=== PATIENT | male | born 1965 | race Caucasian/White ===

== ENCOUNTER → 2016-10-14 11:07 | Day surgery (SDC) | payer OTHER ==
[~2016-10-14 11:07] MED LIST: Buffered Lidocaine 1% SYRIN* 3 ML/SYR SYRINGE INTRADERM ONE; Dexamethasone IV* 4 MG/ML 1 ML (4 MG) ONE; Lidocaine 2% PF* 5 ML VIAL ONE; Metoclopramide IV* 5 MG/ML 2 ML VIAL IV PRN; Midazolam* 1 MG/ML 2 ML VIAL (2 MG) ONE; Ondansetron INJ* 2 MG/ML VIAL ONE; Propofol* 10 MG/ML 20 ML BTL IV PUSH ONE; Scopolamine 1.5 mg* PATCH TRANSDERM PRN; Succinylcholine* 20 MG/ML 10 ML VIAL ONE; fentaNYL* 50 MCG/ML 2 ML VIAL (100 MCG VIAL) ONE
[2016-10-14 16:16] VITALS: BP 106/66
--- NOTE | 2016-10-15 04:06 | PRO ---
BRONCHOSCOPY REPORT: DATE OF PROCEDURE: 10/14/16 PROCEDURE PERFORMED: Bronchoscopy with endobronchial ultrasound-guided fine- needle aspiration of right hilar mass and mediastinal nodes. PREPROCEDURAL DIAGNOSIS: Lung mass, mediastinal adenopathy, rule out malignancy. ANESTHESIA: General anesthesia. ANESTHESIOLOGIST: Alissa Temple MD DESCRIPTION OF PROCEDURE: Informed consent was obtained from the patient prior to the procedure after all the risks and benefits were thoroughly explained. The patient was intubated with size 8.0 endotracheal tube prior to the procedure. Appropriate time-out was performed and agreed on by operating room staff. The patient was placed supine on operating room table. Nikko hugger and Venodynes were placed. Flexible Olympus bronchoscope was inserted through ET tube for airway inspection. The patient noted to have thick white secretions bilaterally. Secretions were suctioned out. Sample was sent to lab for microbiological examination. No endobronchial lesions were noted. Bronchoscope was then withdrawn and EBUS bronchoscope was inserted. The right hilar mass was accessed with 6 passes. Atypical cells were seen in one of the pass. Adequate sample was ascertained by rapid on-site evaluation. Station R4 lymph node was accessed with 5 passes. Rapid on-site evaluation revealed adequate lymphatic tissue and evidence of malignant cells in 2 out of those 5 passes. Bronchoscope was then advanced and station 7 lymph node was sampled with 4 passes. Rapid on-site evaluation revealed adequate lymphatic tissue and no evidence of malignant cells. Station L4 was then accessed with 2 passes. Rapid on-site evaluation revealed lymphatic tissue on 2 passes with no atypical cells. The patient did not have significantly enlarged left-sided nodes and therefore they were not biopsied. Minimum bleeding occurred during the procedure. The patient was extubated and seen in recovery in optimal condition. Bronchoalveolar lavage was obtained from right upper lobe and was sent to the lab for microbiological examination. [id number]/[facility] #: [id number] MTDD
== END | disposition home or self-care (01) ==
LOC: OR 11:07
PROVIDERS: ATTEND Internal Medicine
DX: C34.01 Malignant neoplasm of right main bronchus (principal); C77.1 Secondary and unspecified malignant neoplasm of intrathoracic lymph nodes; J44.9 Chronic obstructive pulmonary disease, unspecified; F17.210 Nicotine dependence, cigarettes, uncomplicated; I10 Essential (primary) hypertension; G89.29 Other chronic pain; F11.20 Opioid dependence, uncomplicated; G35 Multiple sclerosis
CPT/HCPCS: 87070; 87077; 87102; 87184; 87186; 87205; 88172; 88173; 88305; 88341; 88342; J0330; J1100; J2250; J2405; J2704; J3010

== ENCOUNTER 2016-11-17 10:30 | Day surgery (SDC) | payer MEDICARE ==
[~2016-11-17 10:30] MED LIST changes: +Buffered Lidocaine 1% SYR 3ML* 3 ML/SYR SYRINGE INTRADERM ONE; -Buffered Lidocaine 1% SYRIN* 3 ML/SYR SYRINGE INTRADERM ONE; -Dexamethasone IV* 4 MG/ML 1 ML (4 MG) ONE; +Famotidine IV* 10 MG/ML 2 ML (20 mg) IV ONE; +Famotidine IV* 10 MG/ML 2 ML (20 mg) ONE; -Lidocaine 2% PF* 5 ML VIAL ONE; -Metoclopramide IV* 5 MG/ML 2 ML VIAL IV PRN; -Midazolam* 1 MG/ML 2 ML VIAL (2 MG) ONE; -Ondansetron INJ* 2 MG/ML VIAL ONE; +PROCHLORPERAZINE INJ 5 MG/ML 2 ML VIAL IV PRN; -Propofol* 10 MG/ML 20 ML BTL IV PUSH ONE; +Scopolamine 1.5 mg* PATCH ONE; +Scopolamine 1.5 mg* PATCH TRANSDERM ONE; -Scopolamine 1.5 mg* PATCH TRANSDERM PRN; -Succinylcholine* 20 MG/ML 10 ML VIAL ONE; +ceFAZolin 2 GM PREMIX(*) 2 GM/50 ML BAG IVPB ONE; -fentaNYL* 50 MCG/ML 2 ML VIAL (100 MCG VIAL) ONE
[2016-11-17] MEDS ORDERED: Albuterol 2.5 MG/3 ML NEB.SOL* (0.083%) ONE (11:22)
[2016-11-17] MEDS ORDERED: Dexamethasone IV* 4 MG/ML 1 ML (4 MG) ONE (11:22)
[2016-11-17] MEDS ORDERED: KETAMINE HCL* 50 MG/ML 10 ML VIAL ONE (12:38)
[2016-11-17] MEDS ORDERED: fentaNYL* 50 MCG/ML 2 ML VIAL (100 MCG VIAL) ONE ×2 (12:38→15:22)
[2016-11-17] MEDS ORDERED: Midazolam* 1 MG/ML 5 ML VIAL (5 MG) ONE ×2 (12:38→13:52)
[2016-11-17] MEDS ORDERED: Lidocaine 1% INJ* 10 MG/ML 30 ML SDV ONE (13:56)
[2016-11-17] MEDS ORDERED: Lidocaine 2% PF * 5 ML VIAL ONE (14:20)
[2016-11-17] MEDS ORDERED: Propofol* 10 MG/ML 20 ML BTL IV PUSH ONE ×3 (14:20→16:14)
[2016-11-17] MEDS ORDERED: Ondansetron INJ* 2 MG/ML VIAL ONE (14:20)
[2016-11-17] MEDS ORDERED: Morphine INJ* 10 MG/ML 1 ML SYRINGE ONE (14:29)
[2016-11-17] MEDS ORDERED: Midazolam* 1 MG/ML 2 ML VIAL (2 MG) ONE (15:22)
[2016-11-17] MEDS ORDERED: HYDROmorphone* 1 MG/ML 1 ML SYR ONE (16:55)
[2016-11-17] MEDS: HYDROmorphone* 1 MG/ML 1 ML SYR IV PRN ×5 (16:57→17:37)
--- NOTE | 2016-11-17 17:32 | RAD ---
Indication: Status post Mediport insertion. Single frontal view of the chest performed at 1655 hours was reviewed. Comparison is made with previous exam dated November 17, 2016. Right-sided central catheter is in place. No pneumothorax is noted. The tip is noted in the superior vena cava. No definite pleural fluid, pneumonia or pneumothorax is noted. IMPRESSION: CENTRAL CATHETER IN PLACE.
--- NOTE | 2016-11-17 17:34 | RAD ---
CPT II Codes: 6045F INDICATION: Central line placement Fluoroscopic services provided for referring physician. 57.4 seconds of fluoroscopy time was used. There is placement of a right-sided PowerPort with the tip in the superior vena cava. IMPRESSION: FLUOROSCOPIC SERVICES PROVIDED FOR REFERRING PHYSICIAN FOR CENTRAL CATHETER PLACEMENT.
[2016-11-17 17:48] VITALS: BP 101/68
--- NOTE | 2016-11-18 06:50 | OP ---
DATE OF OPERATION: 11/17/16 - [facility] DATE OF : 61 SURGEON: Mingo Dodd MD UNDERWRITING SERVICE REPRESENTATIVE: None. ANESTHESIOLOGIST: Dr. Moreno. ANESTHESIA: Local MAC. PRE-OPERATIVE DIAGNOSIS: Right lung carcinoma. POST-OPERATIVE DIAGNOSIS: Right lung carcinoma. OPERATIVE PROCEDURE: Removal of left subclavian central venous catheter with subcutaneous port and placement of a right subclavian PowerPort. ESTIMATED BLOOD LOSS: 10 mL. IV FLUIDS: Crystalloids. SPECIMENS: None. DRAINS: None. COMPLICATIONS: None. COUNTS: The instruments, needle, and sponge counts were correct. DESCRIPTION OF PROCEDURE: The patient was brought to the operating room and placed on the table supine. Sequential compression devices were placed on both lower extremities. The patient was administered intravenous sedation. The chest and neck were prepped and draped in the usual sterile fashion and time- out was performed. Local anesthetic was infiltrated into the soft tissue and skin on the left upper chest. The area of the palpable subcutaneous port and through the area of the previous scar, an incision was created, dividing the subcutaneous tissues with cautery and identifying the catheter and the port, which was elevated. The catheter was divided on the port side, the port was removed from the subcutaneous tissues with cautery. The catheter was threaded with a guidewire and then the catheter was bagged out. The guidewire was confirmed to be in the superior vena cava under fluoroscopic imaging. Attempts were made to pass a peel-away sheath and dilator ; however, there appeared to be significant fibrosis along the tract and that was not possible. It was decided to then attempt the left cephalic vein cut down. The incision was extended further towards the lateral aspect in the dissection of the deltopectoral triangle revealed a cephalic vein, which was isolated with 3-0 silks, ligated distally and then a venotomy created and the 8- American PowerPort catheter was advanced into the area of the subclavian vein; however, upon attempts to advance the catheter into the superior vena cava, the catheter preferentially went into the jugular vein and then into the contralateral subclavian vein and despite attempts to manipulate the catheter and advance it into the superior vena cava, this was not possible. Lastly, an attempt was made to place the left internal jugular catheter and under ultrasound guidance, the left internal jugular vein was cannulated; however, guidewire was not able to be passed and ultimately it was decided to abort any further attempts from the left side in favor of placement of the right-sided port. The cephalic vein was ligated with 3-0 silk. Hemostasis was assured in the wound and the wound was closed with 3-0 Polysorb for the subcutaneous tissues and 4- 0 Monocryl for the skin in the running subcuticular fashion and Steri-Strips were applied. The patient was then re-prepped and draped and time- out was re-performed for a right subclavian vein PowerPort placement. After infiltrating with local anesthetic, the vein was cannulated on second pass with the needle and the guidewire was placed in the superior vena cava without difficulty. Additional anesthetic was infiltrated to create the subcutaneous port inferior to the insertion site and the pocket was created with cautery. A counterincision was made at the guidewire insertion site and then the 8-American PowerPort catheter was back tunneled to the pocket. The peel-away sheath and dilator were advanced over the guidewire into the superior vena cava under fluoroscopic guidance, then the catheter was advanced into the superior vena cava under fluoroscopic guidance. The catheter was cut through the appropriate length, connected to the port, which was placed in the subcutaneous pocket and secured with a single 2-0 Surgipro. The port was accessed, it sarwat and flushed easily. The wounds were then closed with 3-0 Polysorb for the subcutaneous tissues, 4-0 Monocryl for the skin, and Steri-Strips applied. The port was accessed and flushed with heparinized saline. Tegaderm dressing was then placed over the site. The patient tolerated the procedure well. He was awakened and transferred to the recovery room in stable condition. CC: Dr. Mario Marie; Ilana Fierro MD; Mingo Rodriguez MD * [id number]/[facility] #: [id number] [facility] CENTERFernando
[2016-11-20] MEDS ORDERED: Scopolomine PATCH Remove* 1 NOTE MISC PATCH OFF ONE (06:00)
== END 2016-11-17 18:00 | disposition home or self-care (01) ==
LOC: OR 10:30
PROVIDERS: ATTEND Surgery
DX: C34.01 Malignant neoplasm of right main bronchus (principal); G35 Multiple sclerosis; J44.9 Chronic obstructive pulmonary disease, unspecified; F17.210 Nicotine dependence, cigarettes, uncomplicated; T82.594A Other mechanical complication of infusion catheter, initial encounter; Y83.1 Surgical operation with implant of artificial internal device as the cause of abnormal reaction of the patient, or of later complication, without mention of misadventure at the time of the procedure
CPT/HCPCS: 71010; 76000; A9270-GY; C1788; J0690; J1100; J1170; J1642; J2001; J2250; J2270; J2405; J2704; J3010

== ENCOUNTER 2018-03-08 11:41 | Inpatient (IN) | payer MEDICARE, MEDICAID ==
[2018-03-08] MEDS ORDERED: Acetaminophen TAB* 325 MG PO PRN (15:00)
[2018-03-08] MEDS ORDERED: Enoxaparin(*) 40 MG/0.4 ML SYR SUBCUT SCH (15:00)
[2018-03-08] MEDS ORDERED: ALPRAZolam TAB* 0.5 MG PO PRN (16:25)
[2018-03-08] MEDS ORDERED: Polyethylene Glycol 3350* 17 GM PACKET PO PRN (16:25)
[2018-03-08] MEDS ORDERED: Docusate CAP* 100 MG PO PRN (16:25)
[2018-03-08] MEDS: HYDROmorphone TAB* 4 MG PO PRN ×2 (17:11→21:25)
[2018-03-08] MEDS: Benzonatate CAP* 100 MG PO PRN (17:20)
[2018-03-08] MEDS: Albuterol HFA INHALER* 8 gm MDI INH SCH ×2 (18:22→20:13)
[2018-03-08] MEDS: NS 0.9% 1000 ML* 1,000 ML IV SCH (18:22)
[2018-03-08 18:25] LABS: ABS Basophils 0 10^3/ul (0-0.2); ABS Eosinophils 0.1 10^3/ul (0-0.6); ABS Lymphocytes 0.8 10^3/ul (1.0-4.8); ABS Neutrophils 4.2 10^3/ul (1.5-7.7); ABS Nucleated RBC 0 10^3/ul; Eosinophil % 1.4 % (0-6); Hematocrit 35 % (42-52); Hemoglobin 11.9 g/dl (14.0-18.0); Lymphocyte % 13.6 % (25-47); Mean Corpuscular HGB Conc 34 g/dl (31-36); Mean Corpuscular Hemoglobin 30 pg (27-31); Mean Corpuscular Volume 88 fL (80-94); Mean Platelet Volume 7.9 um3 (7.4-10.4); Nucleated Red Blood Cells % 0.2; Platelet Count 190 10^3/ul (150-450); Red Blood Count 3.97 10^6/ul (4.00-5.40); Red Cell Distribution Width 13 % (10.5-15); White Blood Count 6.1 10^3/ul (3.5-10.8)
[2018-03-08 18:44] LABS: EGFR Non-African American 82.6 (>60)
--- NOTE | 2018-03-08 19:21 | RAD ---
EXAM: CT Chest Without Intravenous Contrast CLINICAL HISTORY: 52 years old, male; Pain; Chest pain; Prior surgery; Surgery date: 1-6 months; Surgery type: Port placement; Additional info: R sided cp, h/o lung ca TECHNIQUE: Axial computed tomography images of the chest without intravenous contrast. All CT scans at this facility use at least one of these dose optimization techniques: automated exposure control; mA and/or kV adjustment per patient size (includes targeted exams where dose is matched to clinical indication); or iterative reconstruction. Coronal and sagittal reformatted images were created and reviewed. COMPARISON: CHEST WO CT CHEST W/O 12/17/2017 11:40 AM FINDINGS: Lungs: Mild centrilobular emphysematous disease. Previously seen confluent volume loss encasing the right hilum is again identified with a maximal measurement of 7.7 cm (series 3, image 25) previously 5.7 cm. There is encasement with mild narrowing of the perihilar bronchi unchanged from prior. Tree in bud configuration nodules are seen apical posterior segment right upper lobe, lateral basal segment right lower lobe, and posterior basal segment left lower loss which are new. New pulmonary nodule posterior segment right upper lobe measures 0.6 cm (series 3, image 17). Pulmonary nodules versus consolidation with mild adjacent ground glass opacification posterior basal segment right lower lobe measures 1.5 cm (series 3, image 37) and lateral basal segment right lower lobe measuring 0.8 cm (series 3, image 36). Subsegmental atelectasis inferior lingula and lateral basal segment left lower lobe which is new compared to prior study. Peribronchial thickening of the left lower lobe bronchi which is advanced for the prior study with mucous plugs again seen. Pleural space: Tiny left effusion. No right effusion. No pneumothorax. Heart: Normal. No cardiomegaly. No pericardial effusion. Bones/joints: No fractures. No suspicious bone lesions. Intrathecal lead terminates at T7. Soft tissues: Normal. No mass or hemorrhage. Vasculature: The aorta demonstrates mild atherosclerotic calcification. No thoracic aortic aneurysm. Lymph nodes: Normal. No enlarged lymph nodes. Tubes, lines and devices: Right chest infusion port terminates at the cavoatrial junction. No fluid collection or hyperemia around the port. IMPRESSION: 1. Right perihilar posttreatment fibrosis worsening compared to prior study with interval onset multifocal endobronchial pneumonia with recurrent metastatic disease considered less likely. Findings superimposed on emphysema. 2. New right upper lobe pulmonary nodule may be infectious inflammatory although attention on followup surveillance is recommended.
[2018-03-08] MEDS: Zolpidem TAB* 10 MG PO SCH (21:26)
[2018-03-08] MEDS: oxyCODONE SR TAB(*) 15 MG TAB.SR PO SCH (21:26)
[2018-03-08] MEDS ORDERED: Albuterol HFA INHALER* 8 gm MDI INH PRN (21:29)
[2018-03-08 21:53] LABS: Urine Appearance Cloudy; Urine Blood Negative (Negative); Urine Color Yellow; Urine Ketones Trace (Negative); Urine Protein Negative (Negative); Urine Specific Gravity 1.015 (1.010-1.030); Urine Urobilinogen Negative (Negative)
[2018-03-09] MEDS: HYDROmorphone TAB* 4 MG PO PRN ×3 (01:35→17:29)
[2018-03-09] MEDS: NS 0.9% 1000 ML* 1,000 ML IV SCH ×2 (02:59→11:13)
[2018-03-09] MEDS ORDERED: HYDROmorphone TAB* 4 MG PO ONE (03:23)
[2018-03-09] MEDS: guaiFENesin/CODIEN 100MG-10MG* 5 ML UDC PO PRN ×4 (03:54→23:01)
[2018-03-09 05:49] LABS: ABS Basophils 0 10^3/ul (0-0.2); ABS Eosinophils 0.1 10^3/ul (0-0.6); ABS Lymphocytes 0.7 10^3/ul (1.0-4.8); ABS Neutrophils 3.9 10^3/ul (1.5-7.7); ABS Nucleated RBC 0 10^3/ul; Eosinophil % 2.3 % (0-6); Hematocrit 35 % (42-52); Hemoglobin 11.8 g/dl (14.0-18.0); Lymphocyte % 12.9 % (25-47); Mean Corpuscular HGB Conc 33 g/dl (31-36); Mean Corpuscular Hemoglobin 30 pg (27-31); Mean Corpuscular Volume 89 fL (80-94); Nucleated Red Blood Cells % 0.1; Platelet Count 196 10^3/ul (150-450); Red Blood Count 3.99 10^6/ul (4.00-5.40); Red Cell Distribution Width 13 % (10.5-15); White Blood Count 5.8 10^3/ul (3.5-10.8)
[2018-03-09 07:10] LABS: EGFR Non-African American 102.2 (>60)
[2018-03-09] MEDS: Famotidine TAB* 20 MG PO SCH (08:07)
[2018-03-09] MEDS: oxyCODONE SR TAB(*) 15 MG TAB.SR PO SCH ×2 (08:07→22:42)
[2018-03-09] MEDS ORDERED: Citalopram TAB* 40 MG PO SCH (09:00)
[2018-03-09] MEDS ORDERED: Morphine VIAL* 4 MG/ML VIAL (1 ml vial) IV ONE (10:16)
--- NOTE | 2018-03-09 11:46 | PN ---
Progress Note - Progress Note Date of Service: 03/09/18 SOAP: Subjective: []Still SOB and right sided chest pain. Chest pain sever. SOB started one week ago. Cough, non productive. Low grade fevers, 99. No VITOR. Confusion and hallucination x 2 days. 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 PmHx: - Stage III NSSLC, XRT and carbo/taxol - MS - PE in past, 2008 - COPD - Bipolar Acetaminophen (Tylenol Tab*) 650 mg PO Q4H PRN PRN Reason: FEVER/PAIN Albuterol (Ventolin Hfa Inhaler*) 2 puff INH Q4H PRN PRN Reason: SOB/WHEEZING Alprazolam (Xanax Tab*) 0.5 mg PO Q8H PRN PRN Reason: ANXIETY Benzonatate (Tessalon Cap*) 100 mg PO BID PRN PRN Reason: COUGH Last Admin: 03/08/18 17:20 Dose: 100 mg Citalopram Hydrobromide (Celexa Tab*) 40 mg PO DAILY [facility] Last Admin: 03/09/18 08:07 Dose: 40 mg Docusate Sodium (Colace Cap*) 100 mg PO DAILY PRN PRN Reason: CONSTIPATION Enoxaparin Sodium (Lovenox(*)) 40 mg SUBCUT Q24H [facility] Last Admin: 03/08/18 17:20 Dose: 40 mg Famotidine (Pepcid Tab*) 20 mg PO DAILY [facility] Last Admin: 03/09/18 08:07 Dose: 20 mg Guaifenesin/Codeine Phosphate (Robitussin Ac 100mg-10mg*) 5 ml PO Q4H PRN PRN Reason: COUGH Last Admin: 03/09/18 08:07 Dose: 5 ml Hydromorphone HCl (Dilaudid Tab*) 4 mg PO Q4H PRN PRN Reason: PAIN Last Admin: 03/09/18 09:39 Dose: 4 mg Sodium Chloride (Ns 0.9% 1000 Ml*) 1,000 mls @ 125 mls/hr IV PER RATE [facility] Last Admin: 03/09/18 11:13 Dose: 125 mls/hr Oxycodone HCl (Oxycontin(*)) 15 mg PO BID [facility] Last Admin: 03/09/18 08:07 Dose: 15 mg Polyethylene Glycol/Electrolytes (Miralax*) 17 gm PO DAILY PRN PRN Reason: CONSTIPATION Zolpidem Tartrate (Ambien Tab*) 10 mg PO BEDTIME [facility] Last Admin: 03/08/18 21:26 Dose: 10 mg Objective: [] Vital Signs Temp Pulse Resp BP Pulse Ox 99.9 F 87 20 100/59 93 03/09/18 07:48 03/09/18 07:48 03/09/18 11:05 03/09/18 07:48 03/09/18 07:48 HEENT - no oral lesions. No LAD Has bronchial congestion, crackles, R > L, no wheezing RRR S1S2 Obese, NT ND Ext Tr edema Neuro- oriented to hospital, cohesive story, no hallucinations at this time. Assessment: []52 yo with h/o early stage NSSLC as well as chronic lung disease, history of PE, history of MS. Confusion, chest pain and SOB. Ddx: pneumonia, PE, delirium from inflammation or MS flair. Plan: []1. Pnemoni/Bronchitis - Leofloxacin 500 mg IV daily - Send sputum culture 2. COPD. Respiratory therapy, nebs 3. Possible PE - Check Ddimer, non specific - LE US - Check V/Q scan and Lovenox empirically pending results. 4. MS change. Check MRI brain. Held to check spine stimulator. 5. DNR and DNI, discussed with patient.
[2018-03-09] MEDS ORDERED: ZOSYN 3.375 GM x ONE DOSE over 30 miuntes IVPB ×2 (12:00)
[2018-03-09] MEDS ORDERED: Levofloxacin 500 MG IVPREMIX(* 500 MG/100 ML BAG IVPB SCH (12:00)
--- NOTE | 2018-03-09 13:35 | RAD ---
Indication: Shortness of breath. History of PE. Comparison: March 09, 2018 chest radiograph and March 08, 2018 CT. Technique: Following administration of 9.790 mCi xenon-133 by inhalation anterior and posterior ventilation images were obtained. Following the administration of 6.250 mCi of Tc-99m macroaggregated albumin, perfusion images were obtained in multiple projections. Report: The ventilation pattern is uniform with no evidence of air trapping. Photopenic defect at the RIGHT upper lung zone corresponds with a MediPort. Accounting for the photopenic defect related to the RIGHT chest wall Mediport there is homogeneous perfusion throughout both lungs. IMPRESSION: #. No scintigraphic evidence for pulmonary embolism.
--- NOTE | 2018-03-09 13:45 | RAD ---
Indication: Shortness of breath. 2 views of the chest including dual energy PA views demonstrate neural stimulator leads in place. Vascular congestion is noted. Central line is in place. Right hilar mass is noted. IMPRESSION: Suggestion of a right hilar mass. Neurostimulator leads in place.
--- NOTE | 2018-03-09 15:34 | RAD ---
HISTORY: LE edema COMPARISONS: None relevant TECHNIQUE: Multiple transverse and longitudinal ultrasound images were obtained of the bilateral lower extremities from the level of the common femoral vein inferiorly through to the infrapopliteal veins using grayscale, color Doppler, and spectral Doppler imaging with and without compression and with augmentation. FINDINGS: VEINS: The venous system of the bilateral lower extremities is compressible throughout its course, with normal flow on color Doppler imaging and normal response to augmentation on spectral Doppler imaging. The second peroneal vein on the left is not well visualized which may be secondary to technical limitations. SOFT TISSUES: Unremarkable. OTHER FINDINGS: None. IMPRESSION: NO RIGHT LOWER EXTREMITY DEEP VEIN THROMBOSIS. NO LEFT LOWER EXTREMITY DEEP VEIN THROMBOSIS.
[2018-03-09] MEDS: Piperacillin/Tazobac ADVAN(*) 3.375 GM in NS 0.9% 100 ML* 100 ML IVPB SCH (16:40)
[2018-03-09] MEDS ORDERED: Enoxaparin(*) 40 MG/0.4 ML SYR SUBCUT SCH (21:00)
[2018-03-09] MEDS: Morphine VIAL* 4 MG/ML VIAL (1 ml vial) IV PRN (22:38)
[2018-03-09] MEDS: Zolpidem TAB* 10 MG PO SCH (22:42)
[2018-03-09] MEDS: Benzonatate CAP* 100 MG PO PRN (23:01)
[2018-03-09] MEDS: Enoxaparin(*) 100 MG/ML SYR SUBCUT SCH (23:03)
[2018-03-10] MEDS: Piperacillin/Tazobac ADVAN(*) 3.375 GM in NS 0.9% 100 ML* 100 ML IVPB SCH ×4 (00:12→23:37)
[2018-03-10] MEDS: Morphine VIAL* 4 MG/ML VIAL (1 ml vial) IV PRN ×4 (03:53→20:20)
[2018-03-10 08:26] LABS: ABS Basophils 0 10^3/ul (0-0.2); ABS Eosinophils 0.1 10^3/ul (0-0.6); ABS Lymphocytes 0.6 10^3/ul (1.0-4.8); ABS Monocytes 0.9 10^3/ul (0-0.8); ABS Neutrophils 3.7 10^3/ul (1.5-7.7); ABS Nucleated RBC 0 10^3/ul; Eosinophil % 1.4 % (0-6); Hematocrit 34 % (42-52); Hemoglobin 11.4 g/dl (14.0-18.0); Lymphocyte % 11.4 % (25-47); Mean Corpuscular HGB Conc 34 g/dl (31-36); Mean Corpuscular Hemoglobin 30 pg (27-31); Mean Corpuscular Volume 89 fL (80-94); Mean Platelet Volume 8.5 um3 (7.4-10.4); Nucleated Red Blood Cells % 0; Platelet Count 219 10^3/ul (150-450); Red Blood Count 3.84 10^6/ul (4.00-5.40); Red Cell Distribution Width 13 % (10.5-15); White Blood Count 5.2 10^3/ul (3.5-10.8)
[2018-03-10] MEDS: oxyCODONE SR TAB(*) 15 MG TAB.SR PO SCH ×2 (08:49→20:44)
[2018-03-10] MEDS: Famotidine TAB* 20 MG PO SCH (08:49)
[2018-03-10] MEDS: Enoxaparin(*) 100 MG/ML SYR SUBCUT SCH (08:49)
[2018-03-10] MEDS: Albuterol/Ipratropium NEB.SOL* Albuterol 2.5 MG/Ipratropium 0.5 MG 3 ML INH PRN (09:53)
[2018-03-10 10:04] LABS: EGFR Non-African American 121.5 (>60)
[2018-03-10] MEDS ORDERED: Iohexol 300* (CONTRAST) 10 ML SDV IV ONE (10:04)
[2018-03-10] MEDS ORDERED: HYDROmorphone TAB* 4 MG PO PRN (11:22)
[2018-03-10] MEDS: HYDROmorphone TAB* 2 MG PO PRN (12:30)
[2018-03-10] MEDS ORDERED: methylPREDNISolone 125 MG* 2 ML VIAL IV ONE (13:09)
[2018-03-10] MEDS ORDERED: Furosemide IV* 10 MG/ML 2 ML VIAL (20 MG) IV SLOW PU ONE (13:18)
--- NOTE | 2018-03-10 13:41 | RAD ---
HISTORY: AMS, MRI contraindicated, h/o MS and NSCLC COMPARISONS: November 03, 2016 TECHNIQUE: Multiple contiguous axial CT scans were obtained of the head with and without intravenous contrast. FINDINGS: HEMORRHAGE/INFARCT: There is no hemorrhage or acute infarct. MASSES/SHIFT: There is no mass or shift. EXTRA-AXIAL SPACES: There are no extra-axial fluid collections. SULCI AND VENTRICLES: The sulci and ventricles are normal in size and position for the patient's stated age. CEREBRUM: There is hypoattenuation of the periventricular and subcortical white matter. There is no abnormal enhancement. BRAINSTEM: There are no focal parenchymal abnormalities. CEREBELLUM: There are no focal parenchymal abnormalities. VESSELS: The vessels are grossly normal. PARANASAL SINUSES: The paranasal sinuses are clear. ORBITS: The orbits are unremarkable. BONES AND SOFT TISSUE: No bone or soft tissue abnormalities are noted. OTHER: There is no abnormal enhancement. IMPRESSION: NO ACUTE INTRACRANIAL PATHOLOGY. CHRONIC SMALL VESSEL ISCHEMIC CHANGES. NO ABNORMAL ENHANCEMENT.
[2018-03-10] MEDS: Benzonatate CAP* 100 MG PO PRN (17:52)
[2018-03-10] MEDS: guaiFENesin/CODIEN 100MG-10MG* 5 ML UDC PO PRN (17:52)
--- NOTE | 2018-03-10 20:17 | PN ---
Progress Note - Progress Note Date of Service: 03/10/18 SOAP: Subjective: [Reports feeling poorly. Complaining of severe R sided chest pain and feeling of chest restriction. Productive cough. Tmax 100.5F. He has a fine tremor and remains quite weak. He is concern that his current symptoms represent MS exacerbation and requests to be treated with IV Solumedrol.] Objective: [ Laboratory Results - last 24 hr 03/10/18 03/10/18 03/10/18 07:45 07:52 07:52 WBC 5.2 RBC 3.84 L Hgb 11.4 L Hct 34 L MCV 89 MCH 30 MCHC 34 RDW 13 Plt Count 219 MPV 8.5 Neut % (Auto) 70.3 Lymph % (Auto) 11.4 L Harnett % (Auto) 16.8 H Eos % (Auto) 1.4 Baso % (Auto) 0.1 Absolute Neuts (auto) 3.7 Absolute Lymphs (auto) 0.6 L Absolute Monos (auto) 0.9 H Absolute Eos (auto) 0.1 Absolute Basos (auto) 0 Absolute Nucleated RBC 0 Nucleated RBC % 0 Sodium 139 Potassium 4.2 Chloride 102 Carbon Dioxide 24 Anion Gap 13 H BUN 8 Creatinine 0.68 Est GFR ( Amer) 147.0 Est GFR (Non-Af Amer) 121.5 BUN/Creatinine Ratio 11.8 Glucose 87 Calcium 8.6 Total Bilirubin 0.90 AST 24 ALT 19 Alkaline Phosphatase 79 B-Natriuretic Peptide 137 H Total Protein 5.9 L Albumin 3.4 Globulin 2.5 Albumin/Globulin Ratio 1.4 Vitamin B12 545 25-OH Vitamin D Total 18.0 L TSH 1.42 Acetaminophen (Tylenol Tab*) 650 mg PO Q4H PRN PRN Reason: FEVER/PAIN Last Admin: 03/09/18 18:21 Dose: 650 mg Albuterol (Ventolin Hfa Inhaler*) 2 puff INH Q4H PRN PRN Reason: SOB/WHEEZING Albuterol/Ipratropium (Duoneb (Albuterol 2.5 Mg/Ipratropium 0.5 Mg)) 1 neb INH Q4H PRN PRN Reason: SOB/WHEEZING Last Admin: 03/10/18 09:53 Dose: 1 neb Alprazolam (Xanax Tab*) 0.5 mg PO Q8H PRN PRN Reason: ANXIETY Benzonatate (Tessalon Cap*) 100 mg PO BID PRN PRN Reason: COUGH Last Admin: 03/10/18 17:52 Dose: 100 mg Docusate Sodium (Colace Cap*) 100 mg PO DAILY PRN PRN Reason: CONSTIPATION Famotidine (Pepcid Tab*) 20 mg PO DAILY [facility] Last Admin: 03/10/18 08:49 Dose: 20 mg Guaifenesin/Codeine Phosphate (Robitussin Ac 100mg-10mg*) 5 ml PO Q4H PRN PRN Reason: COUGH Last Admin: 03/10/18 17:52 Dose: 5 ml Hydromorphone HCl (Dilaudid Tab*) 6 mg PO Q4H PRN PRN Reason: PAIN Last Admin: 03/10/18 12:30 Dose: 6 mg Piperacillin Sod/Tazobactam (Sod 3.375 gm/ Sodium Chloride) 100 mls @ 25 mls/ hr IVPB Q8H [facility] Last Admin: 03/10/18 15:53 Dose: 25 mls/hr Morphine Sulfate (Morphine Vial*) 5 mg IV Q4H PRN PRN Reason: PAIN Last Admin: 03/10/18 15:53 Dose: 5 mg Oxycodone HCl (Oxycontin(*)) 30 mg PO BID [facility] Polyethylene Glycol/Electrolytes (Miralax*) 17 gm PO DAILY PRN PRN Reason: CONSTIPATION Prednisone (Deltasone Tab*) 40 mg PO DAILY [facility] Zolpidem Tartrate (Ambien Tab*) 10 mg PO BEDTIME [facility] Last Admin: 03/09/18 22:42 Dose: 10 mg Vital Signs: Temp Pulse Resp BP Pulse Ox 98.0 F 80 22 127/86 93 03/10/18 19:43 03/10/18 19:43 03/10/18 19:43 03/10/18 19:43 03/10/18 19:43 Exam Gen: Chronically ill appearing 52 yo male who appears uncomfortable and accompanied by his HEENT: MMM, no thrush CV: RRR, no m/r/g Resp: diffuse rhonchi and occasional wheeze Abd: soft, nonTTP Ext: trace edema Psych: alert, appropriately oriented. Confusion appears to have resolved Neuro: fine tremor with intention. Strength grossly intact] [Assessment: []52 yo with h/o early stage NSCLC as well as chronic lung disease, history of PE, and MS. Admitted with Confusion, chest pain and SOB. Ddx: pneumonia, PE, delirium from inflammation or MS flair. PE w/u neg with neg LE doppler and VQ scan. Empiric anticoagulation stopped. Plan: []1. Pneumonia - cont Zosyn - febrile overnight - productive cough - associated COPD exacerbation 2. COPD exacerbation - cont prn nebs - start corticosteroids 4. AMS - MRI brain ordered - per radiology, nerve stimulator is not compatible with MRI although patient believes he has had MRIs with stimulator in place - CT brain with contrast completed that shows no NAD - discussed case with neurology and requested consultation - if any MS symptoms are exacerbated, likely due to acute infection and high dose steroids would not be indicated - requested most recent progress note from [facility] neurologist 5. Chronic pain - managed by pain specialist out of [place] - exacerbated by coughing - increased oxycontin dosing and prn dilaudid 6. NSCLC - no evidence of recurrent disease 7. DNR and DNI ]
[2018-03-10] MEDS: Zolpidem TAB* 10 MG PO SCH (20:44)
[2018-03-10] MEDS: ALPRAZolam TAB* 0.5 MG PO SCH (20:44)
--- NOTE | 2018-03-10 21:52 | CONS ---
CONSULTATION NOTE: DATE OF CONSULT: 03/10/18 CONSULTING PROVIDER: DENTON Palafox REASON FOR CONSULT: History of multiple sclerosis. CHIEF COMPLAINT: Generalized fatigue, "I want to establish care with a neurologist." HISTORY OF PRESENT ILLNESS: Mr. Brian Purdy is a 52-year-old right-handed man , who was diagnosed with multiple sclerosis in 1989, who initially took Avonex for years and then was switched off to Copaxone in November 2016. The patient had to stop after he was diagnosed with early stage non-small cell lung cancer as well as chronic lung disease. He also has a history of pulmonary embolism. The patient presented on 03/08/18 with increased shortness of breath, confusion , and chest pain. He has been diagnosed with pneumonia and bronchitis. Initially, he was started on Zosyn for antibiotic therapy. Neurology was consulted to evaluate for his history of multiple sclerosis. The patient stated that he had last seen a neurologist 2 years ago. He was driving to [place] to see Dr. Sandoval, who retired. He has not had any MRI studies. He tried to get an MRI study 2 years ago at [facility], but due to his spinal cord stimulator that was implanted in 2013, he is unable to obtain an MRI. However, his stimulator does report that it is MRI conditional. The patient has constellation of symptoms that include tremors, pain in the legs, spasticity, and generalized fatigue. None of these symptoms are acute. His significant other also complains of confusion and memory recall problems. He reports no desire to want to do anything and feeling significantly down. He has been feeling this way since 2008. Apparently, the patient seemed to have recent worsening of his symptoms over the last 1 week. He does have an underlying infection, which is pneumonia, which can be playing a role with his neurological complaints. The patient denied any new weakness or paresthesias. The patient denied any new headaches, visual disturbance, swallowing difficulty, or impairment in bowel or bladder functions. Goal of care today is to establish care with a neurologist according to the patient. The patient had used the following medications: Depakote, albuterol inhaler, and steroids over the last 48 hours. PAST MEDICAL HISTORY: Stage III non-small lung cancer. He received radiation therapy and chemotherapy with carbo and Taxol. Multiple sclerosis, PE, COPD, former tobacco use, bipolar disorder. MEDICATIONS: Home medications: 1. Ambien 10 mg daily. 2. Hydromorphone 4 mg p.o. every 6 hours as needed for pain. 3. Guaifenesin 400 mg p.o. every 4 hours as needed. 4. Benadryl 25 mg p.o. at bedtime as needed. 5. Levalbuterol 1 puff every 4 hours as needed. 6. Tizanidine 2 mg p.o. 3 times daily. 7. Folic acid 1 mg p.o. daily. 8. Xanax 0.25 mg p.o. 3 times daily as needed. 9. Depakote 500 mg at bedtime. 10. Citalopram 40 mg p.o. daily. 11. Oxycodone 20 mg p.o. every 12 hours. 12. Propranolol 10 mg p.o. 3 times daily. 13. Multivitamins. 14. Dextromethorphan 30 mg p.o. twice daily as needed. ALLERGIES: ADHESIVE TAPE, BEE VENOM. FAMILY HISTORY: Mother suffered from abdominal aortic aneurysm rupture. Father of ALS and sister of multiple sclerosis. SOCIAL HISTORY: The patient is on disability and is unable to work. REVIEW OF SYSTEMS: A 14-point review of systems was obtained and otherwise negative except for what was mentioned in the HPI. PHYSICAL EXAM: Vitals: Temperature of 98.1, pulse of 94, respiratory rate of 20, oxygen saturation of 96%, blood pressure of 109/59. General: Chronically ill- appearing man, who is obese, who is in no acute distress. Alert, cooperative. Head is normocephalic, atraumatic. Eyes: Conjunctivae/corneas are clear. No scleral icterus. Neck is supple and symmetrical with no carotid bruits. No lymphadenopathy. Lungs: Inspiratory and expiratory wheezing throughout the bibasilar area. Cardiovascular: Regular rhythm with normal S1, S2. Extremities: Normal range of motion with no cyanosis. Skin: No skin lesions or laceration. Psych: Flat affect, depressed mood, but otherwise easy to establish rapport. Neurological Examination: The patient is awake, alert, and oriented to person, place, time, and general circumstances. He does have psychomotor slowing and mild spastic dysarthria. Cranial Nerves: Normal confrontation testing bilaterally. Pupils are mid range and reactive. Sensation is intact on the forehead, cheeks, and jaw region bilaterally. He has no facial droop. He is able to hear throughout the history process. Normal strength against resistance. Tongue is symmetrical and midline with no atrophy or fasciculation. Motor Examination: Generalized low activation, but otherwise no spasticity in the upper extremities. He does have increasing tone of the lower extremities. He has nearly normal strength throughout that is symmetrical 5/5, but again he required re-encouragement to try his best in the motor examination. He does have action-induced tremors, right worse than left with low amplitude high frequency that resolves at rest. Reflexes: Right/left , brachioradialis 3/3, biceps 3/3, triceps 3/3, patella 3/3, ankle 2/2, plantar flexor/flexor. Sensation: Reduced sensation to light touch and pinprick on the feet, but improved at the proximal limbs. Reduced vibration at the great toes. Normal proprioception. Coordination: Normal [id number], but bradykinesia. Gait was not assessed. The patient is walker dependent at baseline. DIAGNOSTIC STUDIES/LAB DATA: WBC 5.2, hemoglobin 11.4, hematocrit 34, platelet count is 219. Sodium 139, potassium 4.2, chloride 102, carbon dioxide 24. AST and ALT are normal. UA is negative. Valproic acid level is 39. CT head with contrast completed on 03/10/18 showed no evidence of any intracranial disease and no mass effect. There were no enhancing lesions. ASSESSMENT AND RECOMMENDATIONS: Mr. 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 Neurology was consulted to evaluate for the patient's confusion and tremors. The patient denied any new neurological deficits other than he has been feeling excessively fatigued and his partner is complaining regarding his memory and slowing cognition. Neurologically, the patient appears to have significant psychomotor slowing, but no focal neurological deficits with diffuse hyperreflexia on examination, which is consistent with his demyelinating disease. Overall, I suspect the patient's tremors to be multifactorial related to: 1. Steroid use. 2. Multiple sclerosis. 3. Depakote use. 4. Albuterol use. I did reassure him that hopefully once he gets off the steroids and consider lowering the dose of Depakote, his tremors would improve. In regards to the fatigue, please check any reversible causes of fatigue such as vitamin D deficiency, vitamin B12, and thyroid disease. I have ordered B12, vitamin D, and TSH to further evaluate. I will follow up with lab results. However, again, the fatigue can be related to his multiple sclerosis, especially that it is not being treated at this time. There are medications that can help with fatigue such as amantadine. I do not recommend starting any medications at this time, as I do suspect the patient is being overmedicated, especially with narcotic therapy. That brings up another point of medication- induced fatigue. The patient is on oxycodone, morphine, hydromorphone. Minimize some of the medications, especially we want to decrease the Ambien 10 mg nighttime to possibly 5 mg. History of multiple sclerosis. I suspect relapsing-remitting with some secondary progression - the patient would like to follow up with us in the Neurology Clinic at [facility]. I will have our staff schedule an appointment within the next 4 weeks. We do need to discuss long-term disease-modifying therapy. I think going back on Copaxone would be the best option for him. The patient is not on chemotherapy any longer and therefore should be on some disease- modifying therapy. The important thing here is we need to obtain some imaging of the brain and spinal cord with and without contrast, which we can do as an outpatient. In the setting of pneumonia, I do not suspect the patient to have multiple sclerosis exacerbation. The patient also agrees given that his symptoms are chronic and stable at this point. TIME SPENT: I spent 70 minutes of which greater than 50% was spent obtaining history, reviewing the chart, examining the patient, and discussing the treatment plan and options as mentioned above. I will sign off, but will follow up with the laboratory results. Please contact me for any questions or concerns. [id number]/[facility] #: [id number] DAHIANA
[2018-03-11] MEDS: guaiFENesin/CODIEN 100MG-10MG* 5 ML UDC PO PRN ×3 (00:23→17:04)
[2018-03-11] MEDS: HYDROmorphone TAB* 2 MG PO PRN ×3 (00:24→15:55)
[2018-03-11] MEDS: Morphine VIAL* 4 MG/ML VIAL (1 ml vial) IV PRN ×3 (02:59→18:37)
[2018-03-11] MEDS: Albuterol/Ipratropium NEB.SOL* Albuterol 2.5 MG/Ipratropium 0.5 MG 3 ML INH PRN ×3 (03:19→17:33)
[2018-03-11 06:02] LABS: ABS Basophils 0 10^3/ul (0-0.2); ABS Eosinophils 0 10^3/ul (0-0.6); ABS Lymphocytes 0.5 10^3/ul (1.0-4.8); ABS Monocytes 0.4 10^3/ul (0-0.8); ABS Nucleated RBC 0 10^3/ul; Eosinophil % 0 % (0-6); Hematocrit 36 % (42-52); Hemoglobin 12.2 g/dl (14.0-18.0); Lymphocyte % 8.7 % (25-47); Mean Corpuscular HGB Conc 34 g/dl (31-36); Mean Corpuscular Hemoglobin 30 pg (27-31); Mean Corpuscular Volume 88 fL (80-94); Mean Platelet Volume 8.5 um3 (7.4-10.4); Nucleated Red Blood Cells % 0.1; Platelet Count 289 10^3/ul (150-450); Red Blood Count 4.06 10^6/ul (4.00-5.40); Red Cell Distribution Width 13 % (10.5-15); White Blood Count 5.9 10^3/ul (3.5-10.8)
[2018-03-11 06:29] LABS: EGFR Non-African American 119.5 (>60)
[2018-03-11] MEDS: Piperacillin/Tazobac ADVAN(*) 3.375 GM in NS 0.9% 100 ML* 100 ML IVPB SCH ×2 (07:26→15:59)
[2018-03-11] MEDS: Famotidine TAB* 20 MG PO SCH (07:53)
[2018-03-11] MEDS: ALPRAZolam TAB* 0.5 MG PO SCH ×3 (07:54→20:22)
[2018-03-11] MEDS: oxyCODONE SR TAB(*) 15 MG TAB.SR PO SCH ×2 (07:54→20:16)
[2018-03-11] MEDS: predniSONE TAB* 20 MG PO SCH (07:54)
[2018-03-11] MEDS: Benzonatate CAP* 100 MG PO PRN ×2 (12:40→17:04)
[2018-03-11] MEDS: Cholecalciferol TAB* 1000 UNITS PO SCH (15:54)
[2018-03-11] MEDS: Zolpidem TAB* 10 MG PO SCH (20:17)
--- NOTE | 2018-03-11 22:24 | PN ---
NEUROLOGY PROGRESS NOTE: DATE OF SERVICE: 03/11/18 REASON FOR FOLLOWUP: Generalized fatigue. SUBJECTIVE: The patient is still having a trouble with tremors this morning. He feels fatigued. He still received all the medications that I recommended to decrease yesterday such as the Ambien, oxyc odone, morphine, hydromorphone. The patient's vitamin D levels came back significant low at 18. TSH is normal at 1.42. Vitamin B12 is normal at 545. Medications unchanged from yesterday. PHYSICAL EXAMINATION: Vitals: Temperature 98 degrees, pulse of 84, respiratory rate of 18, oxygen s aturation 97%. Blood pressure 100/67. General: Chronically ill appearing fatigued man, in no acute distress. He has bilateral and truncal tremors that are high frequent and high amplitude and worse with action. He has no resting tremor. Head: Normocephalic, atraumatic. Eyes: Conjunctivae/corne as are clear. Neck is supple and symmetrical with no carotid bruit. Neurological: The patient is a wake, alert, and oriented to person, place, time, and general circumstances with psychomotor slowing. Pupils equal, round and reactive to light. Extraocular muscles are intact. No facial asymmetry. T ongue is symmetrical and midline with no atrophy. Generalized low activation, but otherwise no spast icity in the upper extremities. He does have increased tone in the lower extremities. He has normall y strength 5/5 throughout the extremities. Hyperreflexia except for 2/2 at the ankles. Reduced sens ation to light and pinprick in the feet, but improved at the proximal limbs. He has got bradykinesia to [id number], but no asymmetry or dysmetria. ASSESSMENT: Mr. Brian Purdy is a 52-year-old male with a history of multiple sclerosis of relapsing remitting and possibly secondary to progressive multiple sclerosis who is not on any disease-modifyi ng therapy who is complaining of generalized fatigue. The patient does have a history of lung cancer status post chemotherapy and radiation. The patient's fatigue is probably related to polypharmacy a s well as vitamin D deficiency. I started him on daily vitamin D supplements 2000 units daily. He s hould follow up at our neurology clinic in 4 to 6 weeks. It is reasonable to put him on Copaxone onc e he follows up. He also will need outpatient MRI as the patient spinal stimulator that is MRI condi tional. Further evaluation should be done in the future. I do not suspect he has multiple sclerosis exacerbation given his symptoms are mostly nonspecific and most likely are trigged from the pneumonia . I will sign off. Please contact us for any questions or concerns. [id number]/[facility] #: [id number]
[2018-03-12] MEDS: Piperacillin/Tazobac ADVAN(*) 3.375 GM in NS 0.9% 100 ML* 100 ML IVPB SCH ×2 (00:24→08:38)
[2018-03-12] MEDS: HYDROmorphone TAB* 2 MG PO PRN ×2 (00:32→06:10)
[2018-03-12] MEDS: Benzonatate CAP* 100 MG PO PRN ×2 (00:32→06:20)
[2018-03-12] MEDS: Morphine VIAL* 4 MG/ML VIAL (1 ml vial) IV PRN (07:20)
[2018-03-12] MEDS: Albuterol/Ipratropium NEB.SOL* Albuterol 2.5 MG/Ipratropium 0.5 MG 3 ML INH PRN (07:30)
[2018-03-12] MEDS: predniSONE TAB* 20 MG PO SCH (09:33)
[2018-03-12] MEDS: oxyCODONE SR TAB(*) 15 MG TAB.SR PO SCH (09:33)
[2018-03-12] MEDS: ALPRAZolam TAB* 0.5 MG PO SCH (09:33)
[2018-03-12] MEDS: Cholecalciferol TAB* 1000 UNITS PO SCH (09:33)
[2018-03-12] MEDS: Famotidine TAB* 20 MG PO SCH (09:34)
[2018-03-12] MEDS ORDERED: Ondansetron ODT TAB* 4 MG PO PRN (11:13)
[2018-03-12 13:31] VITALS: BP 119/75
--- NOTE | 2018-03-13 22:36 | DS ---
CC: Mario Marie DO; Dr. Ilana Fierro; [facility] Neurology * DISCHARGE SUMMARY: DATE OF ADMISSION: 03/08/18 DATE OF DISCHARGE: 03/12/18 PRIMARY CARE PROVIDER: Mario Marie DO PRIMARY ONCOLOGIST: Ilana Fierro MD CONSULTING NEUROLOGIST: Dr. Gabriel. ATTENDING PHYSICIAN: Oliver Hebert MD * (DICTATED BY DENTON HAMMOND) DISCHARGING PROVIDER: DENTON Hammond PRIMARY DISCHARGE DIAGNOSES: 1. Pneumonia. 2. Chronic obstructive pulmonary disease exacerbation. 3. Altered mental status - most likely secondary to pneumonia. 4. Chronic pain - exacerbated by acute illness. 5. Multiple sclerosis. 6. Non-small cell lung carcinoma, status post concurrent chemoradiation finished in January 2017. SECONDARY DISCHARGE DIAGNOSIS: Bipolar disorder. DISCHARGE MEDICATIONS: 1. Alprazolam 0.25 mg p.o. 3 times daily as needed for anxiety. 2. Symbicort 1 puff inhaled twice daily. 3. Citalopram 40 mg p.o. daily. 4. Delsym 30 mg p.o. twice daily as needed for cough. 5. Diphenhydramine 25 mg p.o. at bedtime as needed. 6. Depakote 500 mg p.o. at bedtime. 7. Folic acid 1 mg p.o. daily. 8. Xopenex 1 puff inhaled q.4 hours as needed for shortness of breath. 9. Multivitamin 1 tablet p.o. daily. 10. Propranolol 20 mg 3 times daily. 11. Tizanidine 2 mg p.o. 3 times daily. 12. Ambien 10 mg p.o. at bedtime. 13. Augmentin 875 mg p.o. twice daily x10 days. 14. Tessalon Perles 100 mg p.o. twice daily as needed for cough. 15. Vitamin D 2000 units p.o. daily. 16. Guaifenesin/codeine 5 mL p.o. q.4 hours as needed for cough. 17. Hydromorphone 6 mg p.o. q.4 hours as needed for pain. 18. OxyContin 30 mg p.o. twice daily. 19. Prednisone with instructions to take 40 mg x3 days, then 20 mg x3 days, then 10 mg x3 days. MEDICATION CHANGES: 1. Increase hydromorphone. 2. Increase OxyContin. 3. Augmentin x10 days. 4. Start p.r.n. Tessalon. 5. Start p.r.n. Robitussin A-C. 6. Prednisone with a tapering dose as described above. 7. Start vitamin D. HOSPITAL IMAGIN. CT chest without contrast shows a right perihilar posttreatment fibrosis, which is worse when compared to prior study with interval onset of multifocal endobronchial pneumonia with recurrent metastatic disease considered as less likely with findings of superimposed emphysema. There is a new right upper pulmonary nodule, which may be infectious or inflammatory, but followup imaging is recommended. 2. Chest x-ray on 03/09/17 showed suggestion of a right hilar mass and the stimulator leads in place. 3. Venous Doppler study is negative for DVT bilaterally. 4. V/Q scan is a low probability scan. 5. CT brain shows some chronic microvascular changes, but no acute disease including obvious metastatic focus. HOSPITAL COURSE: This is a 52-year-old gentleman with a history of limited stage non-small cell lung cancer that is treated approximately a year ago with concurrent chemo and radiation. He has been in active surveillance with imaging being CT of the chest from December 2017, which did not show any recurrent disease. The patient presented to medical oncology office for followup with multiple complaints. He had developed a cough with right-sided chest pain in addition to some increased confusion and general lethargy and overall weakness. Initial concern was for [employer] pathology and the patient was referred to the hospital for direct admission. To further complicate his medical history is known multiple sclerosis for which he has been off of medical therapy since his cancer diagnosis approximately 16 months ago and had been followed by Neurology at [place]. Additionally, the patient has bipolar disorder for which he is treated by Psychiatry with Depakote. In December, he had Depakote and ammonia levels checked, which showed elevated ammonia levels and he was subsequently started on lactulose, but was unable to tolerate this medication. The Depakote had been decreased from 500 mg twice daily to 500 mg once daily at bedtime as well. Initial labs showed essentially normal CBC with just mild normocytic anemia with hemoglobin of 11.9 g/dL. Comprehensive metabolic panel was unremarkable. CRP was significantly elevated at 291. CT of the chest was obtained, which showed findings consistent with what was most likely multifocal pneumonia. MRI of the brain with and without contrast was ordered, but then became apparent the patient had a nerve stimulator in place in his back and research from the oceanic sciences professor showed that this was not MRI compatible. Then, a CT head was completed with contrast instead, which showed no acute disease. Ammonia levels were also checked and noted to be normal in the mid 50s on two occasions. The patient subsequently developed a fever and had persistent cough with severe right-sided chest pain. He had a noted history of PE and for this reason, lower extremity Doppler and V/Q scan were both performed, which were both negative for obvious clot. The patient was started on Zosyn for his pneumonia. The patient complained of severe right-sided chest pain mostly associated with deep inspiration and coughing, most likely due to pleurisy related to the pneumonia. He is followed by furniture painter at [facility] for chronic pain medications including OxyContin and Dilaudid were increased during his hospitalization. In addition to chest pain as described above, the patient had significant chest tightness and rhonchi and wheezing on exam. COPD exacerbation with nebulizer treatment and steroids. The patient also complained of generalized weakness and developed a resting tremor during his hospitalization. The concern for an exacerbation of his MS was brought up and neurologist, Dr. Gabriel, was consulted. He suggested that exacerbation of his MS could be responsible for his tremors; but suggested that in the setting of acute illness, it is more likely that his current neurologic symptoms were result of an acute infectious process and he did not require specific treatment for an MS flare, although he did recommend a close followup with Neurology with recommendation to potentially reinitiate medical therapy. DISPOSITION AND FOLLOWUP PLAN: The patient is being discharged to home where he lives with his . Recommended 10 days of Augmentin for treatment of his pneumonia as well as a steroid taper for his COPD exacerbation. Recommendations were Neurology were to decrease or discontinue the Depakote due to his complaints of tremor. This can be addressed with his primary care provider and/or mental health provider depending on the stability of his bipolar disorder and the status of his tremor after leaving the hospital. Of note, CT scan was performed during this hospitalization did note a new pulmonary nodule as well as what appeared to be multifocal pneumonia. We will plan followup in the oncology clinic in approximately 6 weeks with a repeat CT scan prior to that. The patient requires followup with his primary care provider within 1 week of discharge. GABRIELLE DAVIDSON, DENTON [id number]/[facility] #: [id number] [facility]
== END 2018-03-12 14:26 | disposition home or self-care (01) | DRG 194 ==
LOC: MEDTELE 11:41 → OBSVTOIN 03-09 11:41
PROVIDERS: ADMIT Internal Medicine Hematology & Oncology; ATTEND Internal Medicine Hematology & Oncology
DX: J18.9 Pneumonia, unspecified organism (principal); J44.1 Chronic obstructive pulmonary disease with (acute) exacerbation; R41.82 Altered mental status, unspecified; G89.29 Other chronic pain; G35 Multiple sclerosis; F31.9 Bipolar disorder, unspecified; Z85.118 Personal history of other malignant neoplasm of bronchus and lung; R91.1 Solitary pulmonary nodule; Z66 Do not resuscitate; G25.2 Other specified forms of tremor; F17.210 Nicotine dependence, cigarettes, uncomplicated; E55.9 Vitamin D deficiency, unspecified; F32.9 Major depressive disorder, single episode, unspecified; Z88.5 Allergy status to narcotic agent; Z88.8 Allergy status to other drugs, medicaments and biological substances; Z91.030 Bee allergy status; Z79.891 Long term (current) use of opiate analgesic; Z79.899 Other long term (current) drug therapy; Z86.73 Personal history of transient ischemic attack (TIA), and cerebral infarction without residual deficits; Z80.0 Family history of malignant neoplasm of digestive organs; Z80.3 Family history of malignant neoplasm of breast; Z82.0 Family history of epilepsy and other diseases of the nervous system; Z86.711 Personal history of pulmonary embolism
CPT/HCPCS: 36415; 70460; 71046; 71250; 78582; 80053; 80164; 81003; 82140; 82306; 82607; 83605; 83880; 84145; 84443; 85025; 85379; 85652; 86140; 93970; 94640; 99220; 99233; A9270-GY; A9540; A9558; G0378; J1650; J1940; J2270; J2543; J2930; J7512; Q9967

== ENCOUNTER 2018-06-06 11:31 | Emergency (ER) | payer MEDICAID, MEDICARE ==
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
[2018-06-06 13:17] LABS: ABS Basophils 0 10^3/ul (0-0.2); ABS Eosinophils 0.3 10^3/ul (0-0.6); ABS Lymphocytes 0.8 10^3/ul (1.0-4.8); ABS Monocytes 0.6 10^3/ul (0-0.8); ABS Neutrophils 4.3 10^3/ul (1.5-7.7); ABS Nucleated RBC 0 10^3/ul; Eosinophil % 4.8 %; Hematocrit 41 % (42-52); Lymphocyte % 12.6 %; Mean Corpuscular HGB Conc 34 g/dl (31-36); Mean Corpuscular Hemoglobin 30 pg (27-31); Mean Corpuscular Volume 88 fL (80-94); Mean Platelet Volume 8.1 fL (7.4-10.4); Nucleated Red Blood Cells % 0.1; Platelet Count 280 10^3/ul (150-450); Red Blood Count 4.71 10^6/ul (4.00-5.40); Red Cell Distribution Width 14 % (10.5-15)
[2018-06-06 13:44] LABS: EGFR Non-African American 102.2 (>60)
[2018-06-06] MEDS ORDERED: fentaNYL* 50 MCG/ML 2 ML VIAL (100 MCG VIAL) ONE (15:29)
[2018-06-06] MEDS ORDERED: fentaNYL* 50 MCG/ML 2 ML VIAL (100 MCG VIAL) IV SLOW PU ONE ×2 (15:31→18:15)
--- NOTE | 2018-06-06 19:58 | ED ---
Progress - Progress Note Progress Note: Patient is medically cleared for discharge by Mental Health Examiner and Dr. Lopez (Psych). - Consult/PCP Time Called: 11:46 Course/Dx - Course Course Of Treatment: Patient was signed out from Dr. Victor at end of shift, pending MHE. Patient was seen by MHE at 1950. Patient is medically cleared for discharge by Mental Health Examiner and Dr. Lopez (Psych). - Diagnoses Provider Diagnoses: Depression - Provider Notifications Discussed Care Of Patient With: Josh Lopez - Psych Time Discussed With Above Provider: 19:50 - We discussed patient care with Dr. Lopez (Psych) at 1950 and he recommended discharging patient home. Discharge - Sign-Out/Discharge Documenting (check all that apply): Patient Departure, Receiving Sign-Out Receiving patient FROM: Matt Victor - Discharge Plan Condition: Stable Disposition: HOME Patient Education Materials: Depression (ED) Referrals: Mario Marie, [Primary Care Provider] - 2 Days Additional Instructions: Return to the ED for any new or worsening symptoms. - Attestation Statements Document Initiated by Scribe: Yes Documenting Scribe: Erica Fallon Provider For Whom Scribe is Documenting (Include Credential): Taylor Dallas MD Scribe Attestation: Erica Patterson, scribed for Taylor Dallas MD on 06/06/18 at 8. Status of Scribe Document: Ready
[2018-06-06 20:25] VITALS: BP 125/77
== END 2018-06-06 20:23 | disposition home or self-care (01) ==
LOC: ED 11:31
DX: F32.9 Major depressive disorder, single episode, unspecified (principal); R44.0 Auditory hallucinations; R44.1 Visual hallucinations; R45.851 Suicidal ideations; G89.21 Chronic pain due to trauma; M54.5 Low back pain; K21.9 Gastro-esophageal reflux disease without esophagitis; K44.9 Diaphragmatic hernia without obstruction or gangrene; Z85.118 Personal history of other malignant neoplasm of bronchus and lung; Z91.030 Bee allergy status; Z88.5 Allergy status to narcotic agent; Z91.048 Other nonmedicinal substance allergy status; Z87.891 Personal history of nicotine dependence
CPT/HCPCS: 36415; 72131; 80053; 80320; 80329; 82270; 82550; 83605; 83735; 84443; 85025; 87040; 93005; 96374; 96375; 99285; G0480; J1642; J3010

== ENCOUNTER 2019-07-12 22:34 | Inpatient (IN) | payer MEDICARE, OTHER ==
[2019-07-12 23:40] LABS: ABS Eosinophils 0.3 10^3/ul (0-0.6); ABS Lymphocytes 0.6 10^3/ul (1.0-4.8); ABS Monocytes 0.5 10^3/ul (0-0.8); ABS Neutrophils 6.3 10^3/ul (1.5-7.7); Hematocrit 37 % (42-52); Hemoglobin 12.4 g/dL (14.0-18.0); Mean Corpuscular HGB Conc 34 g/dL (31-36); Mean Corpuscular Hemoglobin 30 pg (27-31); Mean Corpuscular Volume 89 fL (80-94); Mean Platelet Volume 8.4 fL (7.4-10.4); Platelet Count 288 10^3/uL (150-450); Red Blood Count 4.11 10^6 /uL (4.18-5.48); Red Cell Distribution Width 14 % (10-15); White Blood Count 7.8 10^3/uL (3.5-10.8)
[2019-07-12 23:41] LABS: Eosinophil % 4.2 %
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
[2019-07-12 23:57] LABS: ALT 38 U/L (7-52); AST 30 U/L (13-39); Albumin 3.2 g/dL (3.2-5.2); Alkaline Phosphatase 52 U/L (34-104); Anion Gap 8 mmol/L (2-11); Blood Urea Nitrogen 12 mg/dL (6-24); CO2 Carbon Dioxide 27 mmol/L (22-32); Calcium 8.5 mg/dL (8.6-10.3); Chloride 104 mmol/L (101-111); EGFR African American 111.7 (>60); EGFR Non-African American 92.3 (>60); Globulin 3.2 g/dL (2-4); Glucose 92 mg/dL (70-100); Potassium 3.9 mmol/L (3.5-5.0); Sodium 139 mmol/L (135-145); Total Protein 6.4 g/dL (6.4-8.9)
[2019-07-13 00:37] LABS: Acetaminophen < 15 mcg/mL; Alcohol < 10 mg/dL (<10); Salicylate < 2.50 mg/dL (<30)
[2019-07-13 00:53] LABS: TSH (Thyroid Stimulating Horm) 2.02 mcIU/mL (0.34-5.60)
[2019-07-13] MEDS ORDERED: oxyCODONE SR TAB(*) 20 MG TAB.SR PO ONE (03:23)
[2019-07-13] MEDS ORDERED: ALPRAZolam TAB* 0.25 MG PO ONE (03:24)
[2019-07-13] MEDS ORDERED: HYDROmorphone TAB* 4 MG PO ONE ×2 (05:59→07:44)
[2019-07-13] MEDS ORDERED: Lorazepam PYXIS KEY PRN (06:00)
[2019-07-13] MEDS ORDERED: Lorazepam PYXIS KEY ONE (06:00)
[2019-07-13] MEDS ORDERED: LORazepam INJ* 2 MG/ML 1 ML VIAL ONE (06:01)
[2019-07-13] MEDS: LORazepam INJ* 2 MG/ML 1 ML VIAL IM ONE ×2 (06:03→06:15)
[2019-07-13] MEDS ORDERED: diPHENhydraMINE IV* 50 MG/ML 1 ml VIAL (BENADRYL) SLOW PUSH ONE (07:00)
[2019-07-13] MEDS ORDERED: diPHENhydraMINE IV* 50 MG/ML 1 ml VIAL (BENADRYL) IM ONE (07:02)
--- NOTE | 2019-07-13 07:03 | ED ---
Progress - Progress Note Progress Note: Pt is a signout from Dr. Izaguirre d/t hold. Re-Evaluation - Re-Evaluation First Eval Re-Evaluation Time: 07:00 Change: Unchanged Comment: Pt is requesting something else for agitation. Will give Benadryl. Second Eval Re-Evaluation Time: 05:53 Comment: Per Dr. Lopez, pt will be admitted to [facility] with dx of unspecified depressive disorder. Course/Dx - Diagnoses Provider Diagnoses: Major depressive disorder, recurrent, unspecified Discharge ED - Sign-Out/Discharge Documenting (check all that apply): Patient Departure, Receiving Sign-Out Receiving patient FROM: Inna Izaguirre - Discharge Plan Condition: Fair Disposition: [facility]IATRIC [facility]AC[facility] [place] Referrals: No Primary Care Phys,NOPCP [Primary Care Provider] - - Billing Disposition and Condition Condition: FAIR Disposition: Psychiatric Facility [facility] - Attestation Statements Document Initiated by Scribe: Yes Documenting Scribe: Zhanna Joseph Provider For Whom Pedro is Documenting (Include Credential): Natalio Mederos MD. Scribe Attestation: IZhanna, scribed for Natalio Mederos MD. on 07/13/19 at 1017. Scribe Documentation Reviewed: Yes Provider Attestation: The documentation as recorded by the scribZhanna aguilera accurately reflects the service I personally performed and the decisions made by , Natalio Mederos MD. Status of Scribe Document: Viewed
[2019-07-13] MEDS ORDERED: Al Hydrox/Mg Hydrox/Simet LIQ* 30 ML UDC PO PRN (10:14)
[2019-07-13] MEDS ORDERED: Albuterol HFA INHALER* 8 gm MDI INH PRN (10:15)
[2019-07-13] MEDS ORDERED: diPHENhydraMINE PO* 25 MG PO PRN (10:15)
--- NOTE | 2019-07-13 10:28 | HP ---
H&P (Free Text) History and Physical: Justification for admission: Immediate Safety. CC " I just want to be comfortable" The patient was brought to [facility] by his brother after he placed guns on his bed in order to use them to end his life. He was treated at [facility] for pneumonia and received supportive measures against his wishes because he did not have MOLST form completed. He reported having stage 4 lung cancer and fears being in pain and feeling that he is being suffocated. He reported being angry about not getting comfort care after he thought the necessary paperwork was already completed. He explained that he has been thinking about his code status for some time (since 2016) and after receiving radiation and chemotherapy wishes to only receive comfort care. He wished to appoint his brother Ezra to be his health care proxy. He explained the nature of his illness and expressed the degree of suffering he has endured. The guns were removed from the home and this was confirmed by his brother. He reported poor sleep and normal appetite. The patient reported being in pain and has difficulty breathing most of the day and is upset at his girlfriend because he thought she filled out the paperwork so that he would not receive life sustaining treatment. The patient denied homicidal ideation intent or plan. The patient denied auditory and/ or visual hallucinations. MDD Reported feeling depressed while having diminished interests which were found to be enjoyable in the past. Reported feelings of hopelessness , and worthlessness. Reported loss of energy or lack of motivation to complete tasks. Reported thoughts that he would be better off . Anxiety Denied having symptoms of anxiety such as having times where heart feels that it is beating out of chest , sweaty palms, or shallow breathing. Denied having uncomfortable or intrusive thoughts. Denied feeling restless, high strung, or worrying too much most of the time. Bipolar Denied symptoms of jose raul such as having many ideas at once. Denied increased talkativeness where no one can interrupt. Denied feeling irritable most of the time while having an persistent abundance of energy most of the day without the use of energy drinks, stimulants, or recreational drug use. Denied an increase in intensity in goal directed activities. Denied having the decreased need to sleep for days , having prolonged elevated mood , or feeling on top of the world. Denied impulsive risky sexual encounters. Denied spending money recklessly , going on spending sprees wiping out savings. Denied impulsively traveling out of town or country, having super garcias, and unrealistic wealth or fame. Psychosis Does not endorse hearing things that other people do not hear or seeing things other people do not see. Denied feeling that TV is making references. Denied feeling that people are spying , following , or reading their thoughts. Phobias: Patient denied having excessive fear of a particular thing or situation. Eating disorders: Patient denied having excessive eating habits or feelings of guilt after eating. Denied repeated episodes of self induced vomiting after eating. PTSD Denied flashbacks, nightmares and avoidance of a prior traumatic event. PAST PSYCHIATRIC HISTORY: Prior Diagnosis : Major Depressive Disorder History of past Psychiatric Hospitalizations: 1 prior psychiatric admission at [facility]. History of past suicide/homicide attempts : Refused to elaborate but mentioned 1 suicide attempt unknown method in 2016. Denied self injurious behaviors. Outpatient follow-up: Dr. Marie PCP Medications: Past trials of medications include celexa, remeron alprazolam, zolpidem Guardianship: None. Health care proxy Ezra his brother FAMILY HISTORY: - Suicide: Denied family history of suicide. - Mental illness: Denied a history of mental health in immediate family members. - Substance abuse: Father abused alcohol SUBSTANCE ABUSE HISTORY: - EtOH: Denied No associated legal issues, blackouts, seizures, DTs or past hospitalizations due to alcohol. - Tobacco: smoked since age 10 until 2016 and quit 3 years ago declined replacement therapy - Cannabis: Denied - Heroin: Denied - Cocaine: Denied - Substance abuse treatment: Denied past substance abuse treatment SOCIAL HISTORY: Born in [facility] and raised by both parents. - Living situation: Currently lives in [place] with brother and girlfriend - Employment history: worked as EMT for 30 years - Relationship: 4 children and currently not but in a relationship with his girlfriend whom he lives with - Legal history: Denied - service history: Denied PAST MEDICAL HISTORY: Stage 4 Lung cancer, MS. - Allergies: Hydromorphone Physical Exam: Please see ED note Mental Status Exam on Admission APPEARANCE : 53 year old male using wheelchair to ambulate. Patient is disheveled and appears to have poor hygiene and grooming BEHAVIOR: Irritable EYE CONTACT: Fair PSYCHOMOTOR ACTIVITY: No psychomotor agitation or retardation. MOVEMENTS: Bilateral upper extremity tremor SPEECH : coherent normal volume MOOD : "Angry" AFFECT : Type is irritable and angry. Range is restricted Mood Incongruent THOUGHT PROCESS: Formulated and organized in a logical, linear goal directed manner. No flight of ideas, neologism (made up words) , perseveration , tangential , loose associations , or circumstantiality. THOUGHT CONTENT: no delusions, obsessions, phobias or preoccupations. PERCEPTION: No current auditory or visual hallucinations. Doesnt appear to be responding to internal cues. No evidence of depersonalization , de-realization, or illusions SUICIDALITY suicidal ideation with plan to end life with gun HOMICIDALITY Denied homicidal ideation, intent or plan. Insight/judgment: Poor insight and judgment ORIENTATION: Oriented to self, location, and time. Diagnosis on Admission: Major depressive disorder. severe. Assessment: 53 year old with history of depression came to the hospital with suicidal ideation and plan to shoot himself and was admitted to the B[facility] at [facility]. Plan #Admit to BSU, Constant observation. Start regular diet. Encourage participation in activities on the milieu. # Justification for Admission: For immediate safety per outlined in the [place] Mental Hygiene Code. # The patient requires psychiatric inpatient admission at this time to assure safety, receive treatment and work toward stabilization. # Labs ordered: CBC, CMP, UDS, TSH, HBA1c, TSH, Toxicology screen, Urine analysis, and lipid profile. # Obtained collateral information from his brother Ezra # DNR status- His brother and also his healthcare proxy are in agreement with DNR status and both wish to pursue hospice care upon discharge. # Collaboration with Social Work #Constant Observation #Order for Oxygen compressor and Wheelchair # Firearms removed by Aircraft Shipping Checker # Hospital consult placed with plan to assist with MOLST form and oncology/ and palliative care resources # Safe ACT completed # Ethics consult completed with Ezra Munir # Patient has capacity to decide code status and at this time his wishes include to be DNR code status. # Although patient has depression, at this time his judgment is not impaired in a way that does not interfere with his capacity to decide his medical decisions. #Goals before discharge include: To eliminate/ reduce suicidal ideation Tentative Discharge: Pending psychiatric stabilization The risks, benefits, and alternative treatment options were discussed as well as the risks of refusing treatment. After this discussion and an acknowledgement of this understanding was made. A risk/ benefit assessment of treatment was considered and discussed with the patient. When comparing the risks of treatment with the dangers of not receiving treatment, the benefits of treatment outweigh the treatment risks at this time. Risks of allergy, suicidal ideation, behavioral changes, dystonia, rashes, electrolyte imbalances, movement disorders, cardiac conduction changes, serotonin syndrome, metabolic risks were among some of the risks discussed. Acetaminophen (Tylenol Tab*) 650 mg PO Q4H PRN PRN Reason: for pain; or Temp >101 F Last Admin: 07/13/19 11:44 Dose: 650 mg Al Hydrox/Mg Hydrox/Simethicone (Maalox Plus*) 30 ml PO Q4H PRN PRN Reason: INDIGESTION Albuterol (Ventolin Hfa Inhaler*) 1 puff INH Q6HR PRN PRN Reason: SHORTNESS OF BREATH Albuterol/Ipratropium (Duoneb (Albuterol 2.5 Mg/Ipratropium 0.5 Mg)) 1 neb INH Q4H PRN PRN Reason: SHORTNESS OF BREATH Last Admin: 07/13/19 12:13 Dose: 1 neb Alprazolam (Xanax Tab*) 1 mg PO TID PRN PRN Reason: ANXIETY Last Admin: 07/13/19 12:41 Dose: 1 mg Baclofen (Lioresal Tab*) 20 mg PO TID WITH MEALS [facility] Last Admin: 07/13/19 12:50 Dose: 20 mg Citalopram Hydrobromide (Celexa Tab*) 40 mg PO DAILY [facility] Last Admin: 07/13/19 11:45 Dose: 40 mg Diphenhydramine HCl (Benadryl Po*) 25 mg PO BEDTIME PRN PRN Reason: SLEEP Epinephrine HCl (Adrenalin 1 Mg/Ml) 0.3 mg IM DAILY PRN PRN Reason: ALLERGY SYMPTOMS Folic Acid (Folvite Tab*) 1 mg PO DAILY [facility] Hydromorphone HCl (Dilaudid Tab*) 4 mg PO QID PRN PRN Reason: PAIN Last Admin: 07/13/19 12:41 Dose: 4 mg Levofloxacin (Levaquin Tab*) 250 mg PO DAILY [facility]; Protocol Last Admin: 07/13/19 11:45 Dose: 250 mg Miscellaneous (Ativan Pyxis Cortes) 1 ea N/A .ATIVAN IV CORTES PRN PRN Reason: PYXIS CORTES Mometasone Furoate/Formoterol Fumar (Dulera 100/5 Mdi*) 1 puff INH BID MELISSA Multivitamins/Minerals (Theragran/Minerals Tab*) 1 tab PO DAILY [facility] Last Admin: 07/13/19 11:44 Dose: 1 tab Oxycodone HCl (Oxycontin(*)) 20 mg PO Q12HR MELISSA Pantoprazole Sodium (Protonix Tab*) 40 mg PO DAILY [facility] Last Admin: 07/13/19 11:45 Dose: 40 mg Zolpidem Tartrate (Ambien Tab*) 10 mg PO BEDTIME MELISSA
[2019-07-13] MEDS: Multivitamins/Minerals TAB PO SCH (11:44)
[2019-07-13] MEDS: Acetaminophen TAB* 325 MG PO PRN (11:44)
[2019-07-13] MEDS: Levofloxacin TAB* 250 MG PO SCH (11:45)
[2019-07-13] MEDS: Citalopram TAB* 40 MG PO SCH (11:45)
[2019-07-13] MEDS: Pantoprazole TAB * 40 MG TAB PO SCH (11:45)
[2019-07-13] MEDS: Albuterol/Ipratropium NEB.SOL* Albuterol 2.5 MG/Ipratropium 0.5 MG 3 ML INH PRN (12:13)
[2019-07-13 12:20] LABS: Urine Appearance Clear; Urine Bilirubin Negative (Negative); Urine Blood Negative (Negative); Urine Color Yellow; Urine Glucose Negative (Negative); Urine Ketones Trace (Negative); Urine Nitrite Negative (Negative); Urine Protein Negative (Negative); Urine Specific Gravity 1.017 (1.010-1.030); Urine Urobilinogen Negative (Negative)
[2019-07-13] MEDS: ALPRAZolam TAB* 0.5 MG PO PRN (12:41)
[2019-07-13] MEDS: HYDROmorphone TAB* 4 MG PO PRN ×2 (12:41→23:53)
[2019-07-13 12:43] LABS: Urine Benzodiazepine Screen Presumptive Positive (None Detect); Urine Opiates Screen Presumptive Positive (None Detect)
[2019-07-13] MEDS: Baclofen TAB* 20 MG PO SCH ×2 (12:50→19:22)
--- NOTE | 2019-07-13 17:39 | PN ---
Hospitalist Progress Note Date of Service: 07/13/19 Called for consult re code status and end of life decisions. Mr. Purdy is a 53 yo M with PMH of lung cancer, COPD on 4L NC, and MS; who presented to [facility] with suicidal ideations requiring admission to BSU. He reports wanting to be a DNR/DNI and is able to verbalize the meaning of those terms. He is also requesting comfort measure which he says he has spoke with his about. I filled out a MOLST form with the patient indicating DNR/DNI code status. This was placed in the chart. I advised him that he would need to speak further with his oncologist (Dr. Long) regarding his wishes for comfort measures as it is unclear to me how advanced the disease is (most recent PET scan indicates no evidence of metastatic disease) and his chronic conditions are stable at this time, so there is no urgent need for initiation of comfort measures. He is agreeable to this plan. [facility] has contacted oncology for further assistance and input. Thank you for this consultation. We will sign off at this time. Please do not hesitate to contact us for any other questions or concerns.
[2019-07-13] MEDS: Mometasone/Formoter 100/5 MDI INH SCH ×2 (19:51→20:11)
[2019-07-13] MEDS: oxyCODONE SR TAB(*) 10 MG TAB.SR PO SCH (20:43)
[2019-07-13] MEDS: Zolpidem TAB* 10 MG PO SCH (20:44)
[2019-07-13] MEDS ORDERED: oxyCODONE SR TAB(*) 20 MG TAB.SR PO SCH (21:00)
[2019-07-14] MEDS: ALPRAZolam TAB* 0.5 MG PO PRN ×3 (02:30→17:19)
[2019-07-14] MEDS: HYDROmorphone TAB* 4 MG PO PRN ×3 (02:40→15:02)
[2019-07-14] MEDS: Acetaminophen TAB* 325 MG PO PRN ×2 (04:27→17:18)
[2019-07-14] MEDS: oxyCODONE SR TAB(*) 10 MG TAB.SR PO SCH ×2 (07:43→22:32)
[2019-07-14] MEDS ORDERED: Pneumococcal *Vac Polyvalent 0.5 ML VIAL IM ONE (09:00)
[2019-07-14] MEDS ORDERED: EPINEPHRINE 1 MG/ML 1 ML VIAL IM PRN (09:00)
[2019-07-14] MEDS: Baclofen TAB* 20 MG PO SCH ×5 (09:25→22:31)
[2019-07-14] MEDS: Mometasone/Formoter 100/5 MDI INH SCH ×2 (09:26→22:32)
[2019-07-14] MEDS ORDERED: ALPRAZolam TAB* 0.5 MG ONE (10:35)
[2019-07-14] MEDS: Albuterol/Ipratropium NEB.SOL* Albuterol 2.5 MG/Ipratropium 0.5 MG 3 ML INH PRN (10:40)
[2019-07-14] MEDS: Multivitamins/Minerals TAB PO SCH (12:43)
[2019-07-14] MEDS: Pantoprazole TAB * 40 MG TAB PO SCH (12:43)
[2019-07-14] MEDS: Folic Acid TAB* 1 MG PO SCH (12:43)
--- NOTE | 2019-07-14 13:48 | PN ---
Subjective - Subjective Date of Service: 07/14/19 Service Type: 04840 Hosp care 35 min high complexity Subjective: Nursing Report: Patient was visible on unit, no behavioral incidents. Slept overnight. Patient is mostly in his room with constant observation. CC: "I am in pain" Patient was seen and evaluated today he complains of a increase in anxiety. Patient reported increased lethargy and low energy and wants to change that. Patient reported being miserable and in constant pain. He reported having adequate appetite and sleep. Per nursing no behavioral issues or overnight events reported. Patient reported that he is tolerating medications without side effects. Objective - General Observations Appearance: Disheveled Appears Stated Age: Yes Stature: Overweight Posture: Tense Eye Contact: Intense Behavior/Activity: Peculiar - Interaction Observations Attitude Towards Examiner: Anxious, Defensive Stated Mood: Dysphoric Affect: Restricted Speech Pattern/Tone: Clear Thought Process: Goal Directed Perception: WNL Thought Content: WNL Hallucination Type: None Delusion Type: None - Cognitive Function Orientation: A&O x 4 Level of Consciousness: Awake - Medication Compliance Cooperative with Inpatient Medication Regimen: Yes - Group Participation Participates in Group Activities: No Assessment - Assessment Merits Inpatient Hospitalization: For Immediate Safety Plan - Plan Treatment Plan: Name: KT KU Birthdate: 1965 [id number] # The patient requires psychiatric inpatient admission at this time to assure safety, receive treatment and work toward stabilization. # Obtained collateral information from his brother Ezra # DNR status # Collaboration with Social Work #Constant Observation #Order for Oxygen compressor and Wheelchair and reclining chair # Firearms removed by [employer] Administrator # Hospital consult placed with plan to assist with MOLST form and oncology/ and palliative care resources # Safe ACT completed # Increased xanax to 2mg TID PRN #Started methylphenidate 18mg daily for cancer related depression and lethargy # Palliative care referral completed by hospitalist social work #Hospitalist evaluated patient for the need to be transferred to the medical service and determined that he did not need to be transferred # Ethics consult completed with Ezra Amaral # Patient has capacity to decide code status and at this time his wishes include to be DNR code status. # Although patient has depression, at this time his judgment is not impaired in a way that does not interfere with his capacity to decide his medical decisions. #Goals before discharge include: To eliminate/ reduce suicidal ideation Tentative Discharge: Wednesday ABG pH 7.41 (7.35-7.45) 07/13/19 01:10 ABG HCO3 27.4 mmol/L (19-31) 07/13/19 01:10 Sodium 139 mmol/L (135-145) 07/12/19 23:35 Potassium 3.9 mmol/L (3.5-5.0) 07/12/19 23:35 BUN 12 mg/dL (6-24) 07/12/19 23:35 Creatinine 0.86 mg/dL (0.67-1.17) 07/12/19 23:35 Hemoglobin A1c 5.4 % (4.0-5.6) 07/14/19 07:42 Calcium 8.5 mg/dL (8.6-10.3) L 07/12/19 23:35 AST 30 U/L (13-39) 07/12/19 23:35 ALT 38 U/L (7-52) 07/12/19 23:35 Triglycerides 122 mg/dL 07/14/19 07:42 Cholesterol 124 mg/dL 07/14/19 07:42 LDL Cholesterol 75 mg/dL 07/14/19 07:42 Continued Medication Management: Continue Outpt Medication Medications: Current Medications Acetaminophen (Tylenol Tab*) 650 mg PO Q4H PRN PRN Reason: for pain; or Temp >101 F Last Admin: 07/14/19 04:27 Dose: 650 mg Al Hydrox/Mg Hydrox/Simethicone (Maalox Plus*) 30 ml PO Q4H PRN PRN Reason: INDIGESTION Albuterol (Ventolin Hfa Inhaler*) 1 puff INH Q6HR PRN PRN Reason: SHORTNESS OF BREATH Last Admin: 07/14/19 09:25 Dose: 1 puff Albuterol/Ipratropium (Duoneb (Albuterol 2.5 Mg/Ipratropium 0.5 Mg)) 1 neb INH Q4H PRN PRN Reason: SHORTNESS OF BREATH Last Admin: 07/14/19 10:40 Dose: 1 neb Alprazolam (Xanax Tab*) 2 mg PO TID PRN PRN Reason: ANXIETY Baclofen (Lioresal Tab*) 20 mg PO TID WITH MEALS MELISSA Last Admin: 07/14/19 09:25 Dose: 20 mg Citalopram Hydrobromide (Celexa Tab*) 40 mg PO DAILY [facility] Last Admin: 07/13/19 11:45 Dose: 40 mg Diphenhydramine HCl (Benadryl Po*) 25 mg PO BEDTIME PRN PRN Reason: SLEEP Epinephrine HCl (Adrenalin 1 Mg/Ml) 0.3 mg IM DAILY PRN PRN Reason: ALLERGY SYMPTOMS Folic Acid (Folvite Tab*) 1 mg PO DAILY [facility] Last Admin: 07/14/19 12:43 Dose: Not Given Hydromorphone HCl (Dilaudid Tab*) 4 mg PO QID PRN PRN Reason: PAIN Last Admin: 07/14/19 09:25 Dose: 4 mg Levofloxacin (Levaquin Tab*) 250 mg PO DAILY [facility]; Protocol Last Admin: 07/13/19 11:45 Dose: 250 mg Methylphenidate HCl (Concerta Er Tab*) 18 mg PO DAILY [facility] Miscellaneous (Ativan Pyxis Mccullough) 1 ea N/A .ATIVAN IV MCCULLOUGH PRN PRN Reason: PYXIS MCCULLOUGH Mometasone Furoate/Formoterol Fumar (Dulera 100/5 Mdi*) 1 puff INH BID [facility] Last Admin: 07/14/19 09:26 Dose: 1 puff Multivitamins/Minerals (Theragran/Minerals Tab*) 1 tab PO DAILY [facility] Last Admin: 07/14/19 12:43 Dose: Not Given Oxycodone HCl (Oxycontin(*)) 20 mg PO Q12HR [facility] Last Admin: 07/14/19 07:43 Dose: 20 mg Pantoprazole Sodium (Protonix Tab*) 40 mg PO DAILY [facility] Last Admin: 07/14/19 12:43 Dose: Not Given Zolpidem Tartrate (Ambien Tab*) 10 mg PO BEDTIME [facility] Last Admin: 07/13/19 20:44 Dose: 10 mg - Discharge Plan Discharge Plan: Inpatient Hospitalization
[2019-07-14] MEDS: Citalopram TAB* 40 MG PO SCH (14:56)
[2019-07-14] MEDS: Levofloxacin TAB* 250 MG PO SCH (14:56)
--- NOTE | 2019-07-14 14:56 | PN ---
Hospitalist Progress Note Date of Service: 07/14/19 Called by Psychiatrist to reevaluate patient. S: Mr. Purdy is not feeling well today. He is frustrated about his medical conditions. Anxiety and anger are easily provoked. At one point he indicates wanting comfort measures only but then talks about wanting to improve his health so that he is at a point where his symptoms are manageable on a day-to- day basis. He is complaining of right-sided spams in his lower ribs/flank. Agreeable to a palliative care consult. O: Lying in bed in NAD. Respirations slightly labored, but no dyspnea. Lung have scattered rhonchi. Saturating well on baseline 4L. HRR. A: Mr. Purdy is an unfortunate 53 yo M with PMH of stage 3 lung cancer in remission s/p chemo and radiation, COPD with chronic respiratory failure on 4L, MS; admitted to MHU with suicidal ideations. P: 1. Lung cancer: According to recent Pulmonology note (03/2019), cancer is in remission. Recent PET scan around that time is unremarkable for any evidence of metasteses. This does not appear to be an active medical concern at this time. 2. COPD on 4L: He is not in acute exacerbation and is sating well on baseline oxygen requirements. He has not had any exacerbations requiring hospitalization. Disease is certainly advanced, but not acutely concerning. Could consider adding buspirone for anxiety. 3. MS: He admits he has not seen a neurologist in quite some time. He is c/o spasms, so I will increase his baclofen from 20mg TID to 20mg QID. He is already on high doses of Oxycontin and hydromorphone. He would certainly benefit from f/u with his neurologist and possibly referral to the pain clinic if pain is still uncontrolled. 4. Code status: DNR/DNI. I have talked with our social workers and they are going to send out a referral to [facility] for outpatient palliative care services. I did talk with the patient about a palliative care consult here in the hospital, but unfortunately that would not happen until Mon or Tu. I do not think he needs an inpatient consult at this point, and so I think he could be d/c'd home with outpatient resources when Psych feels he is safe for d/c.
[2019-07-14] MEDS: Zolpidem TAB* 10 MG PO SCH (22:33)
[2019-07-15] MEDS: HYDROmorphone TAB* 4 MG PO PRN ×3 (03:40→16:14)
[2019-07-15] MEDS: oxyCODONE SR TAB(*) 10 MG TAB.SR PO SCH ×2 (09:50→22:28)
[2019-07-15] MEDS: Baclofen TAB* 20 MG PO SCH ×4 (09:51→22:28)
[2019-07-15] MEDS: Methylphenidate ER TAB* 18 MG PO SCH (10:01)
[2019-07-15] MEDS: Folic Acid TAB* 1 MG PO SCH (10:01)
[2019-07-15] MEDS: Citalopram TAB* 40 MG PO SCH (10:01)
[2019-07-15] MEDS: Levofloxacin TAB* 250 MG PO SCH (10:01)
[2019-07-15] MEDS: Pantoprazole TAB * 40 MG TAB PO SCH (10:02)
[2019-07-15] MEDS: Multivitamins/Minerals TAB PO SCH (10:02)
[2019-07-15] MEDS: Acetaminophen TAB* 325 MG PO PRN ×2 (10:09→16:15)
[2019-07-15] MEDS: Mometasone/Formoter 100/5 MDI INH SCH ×2 (10:17→22:31)
[2019-07-15] MEDS: Albuterol/Ipratropium NEB.SOL* Albuterol 2.5 MG/Ipratropium 0.5 MG 3 ML INH PRN (10:41)
[2019-07-15] MEDS: ALPRAZolam TAB* 0.5 MG PO PRN (11:36)
[2019-07-15] MEDS ORDERED: Azithromycin TAB* 250 MG PO ONE (12:16)
[2019-07-15 12:19] LABS: ABS Eosinophils 0.2 10^3/ul (0-0.6); ABS Lymphocytes 0.6 10^3/ul (1.0-4.8); ABS Monocytes 0.5 10^3/ul (0-0.8); ABS Neutrophils 5.1 10^3/ul (1.5-7.7); Eosinophil % 2.4 %; Hematocrit 36 % (42-52); Hemoglobin 12.1 g/dL (14.0-18.0); Lymphocyte % 9.7 %; Mean Corpuscular HGB Conc 34 g/dL (31-36); Mean Corpuscular Hemoglobin 30 pg (27-31); Mean Corpuscular Volume 89 fL (80-94); Mean Platelet Volume 8.4 fL (7.4-10.4); Platelet Count 315 10^3/uL (150-450); Red Blood Count 4.01 10^6 /uL (4.18-5.48); Red Cell Distribution Width 14 % (10-15); White Blood Count 6.4 10^3/uL (3.5-10.8)
[2019-07-15 12:37] LABS: BUN/Creatinine Ratio 9.2 (8-20); Calcium 8.5 mg/dL (8.6-10.3); EGFR African American 128.8 (>60); EGFR Non-African American 106.5 (>60); Potassium 3.5 mmol/L (3.5-5.0)
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
[2019-07-15] MEDS: Cefdinir cap* 300 MG CAP PO SCH ×2 (13:12→22:31)
[2019-07-15] MEDS: Zolpidem TAB* 10 MG PO SCH (22:30)
[2019-07-16] MEDS: HYDROmorphone TAB* 4 MG PO PRN ×4 (03:26→19:50)
[2019-07-16] MEDS: Folic Acid TAB* 1 MG PO SCH (09:12)
[2019-07-16] MEDS: Pantoprazole TAB * 40 MG TAB PO SCH (09:13)
[2019-07-16] MEDS: Multivitamins/Minerals TAB PO SCH (09:13)
[2019-07-16] MEDS: Azithromycin TAB* 250 MG PO SCH (09:13)
[2019-07-16] MEDS: Citalopram TAB* 40 MG PO SCH (09:13)
[2019-07-16] MEDS: Baclofen TAB* 20 MG PO SCH ×4 (09:13→21:36)
[2019-07-16] MEDS: Methylphenidate ER TAB* 18 MG PO SCH (09:13)
[2019-07-16] MEDS: Cefdinir cap* 300 MG CAP PO SCH ×2 (09:13→21:36)
[2019-07-16] MEDS: Mometasone/Formoter 100/5 MDI INH SCH ×2 (09:14→21:37)
[2019-07-16] MEDS: oxyCODONE SR TAB(*) 10 MG TAB.SR PO SCH ×2 (09:16→21:37)
[2019-07-16] MEDS: ALPRAZolam TAB* 0.5 MG PO PRN ×3 (11:04→19:50)
--- NOTE | 2019-07-16 11:37 | PN ---
Subjective Date of Service: 07/16/19 Interval History: Patient reports that last night his left ankle was bothering him and he was unable to move foot. states that after his ankle popped he has had not further issues. Patient reports he does, minimal activity at baseline. Today reports that he is frustrated about having pneumonia again. reports that he has right rib pain with cough and movement , worse with deep breath. Requesting new oxygen tubing, as current oxygen tubing is bothering wear it rests on his ears. Denies worsening shortness of breath. Denies fever or chills overnight. Denies abd pain n/v or diarrhea. Family History: Unchanged from Admission Social History: Unchanged from Admission Past Medical History: Unchanged from Admission Objective Active Medications: Acetaminophen (Tylenol Tab*) 650 mg PO Q4H PRN PRN Reason: for pain; or Temp >101 F Last Admin: 07/15/19 16:15 Dose: 650 mg Al Hydrox/Mg Hydrox/Simethicone (Maalox Plus*) 30 ml PO Q4H PRN PRN Reason: INDIGESTION Albuterol (Ventolin Hfa Inhaler*) 1 puff INH Q6HR PRN PRN Reason: SHORTNESS OF BREATH Last Admin: 07/14/19 09:25 Dose: 1 puff Albuterol/Ipratropium (Duoneb (Albuterol 2.5 Mg/Ipratropium 0.5 Mg)) 1 neb INH Q4H PRN PRN Reason: SHORTNESS OF BREATH Last Admin: 07/15/19 10:41 Dose: 1 neb Alprazolam (Xanax Tab*) 2 mg PO TID PRN PRN Reason: ANXIETY Last Admin: 07/16/19 11:04 Dose: 2 mg Azithromycin (Zithromax Tab*) 250 mg PO DAILY [facility] Stop: 07/19/19 09:01 Last Admin: 07/16/19 09:13 Dose: 250 mg Baclofen (Lioresal Tab*) 20 mg PO QID [facility] Last Admin: 07/16/19 09:13 Dose: 20 mg Cefdinir (Cefdinir Cap*) 300 mg PO BID [facility] Stop: 07/22/19 12:59 Last Admin: 07/16/19 09:13 Dose: 300 mg Citalopram Hydrobromide (Celexa Tab*) 40 mg PO DAILY [facility] Last Admin: 07/16/19 09:13 Dose: 40 mg Diphenhydramine HCl (Benadryl Po*) 25 mg PO BEDTIME PRN PRN Reason: SLEEP Epinephrine HCl (Adrenalin 1 Mg/Ml) 0.3 mg IM DAILY PRN PRN Reason: ALLERGY SYMPTOMS Folic Acid (Folvite Tab*) 1 mg PO DAILY [facility] Last Admin: 07/16/19 09:12 Dose: 1 mg Hydromorphone HCl (Dilaudid Tab*) 4 mg PO QID PRN PRN Reason: PAIN Last Admin: 07/16/19 09:12 Dose: 4 mg Methylphenidate HCl (Concerta Er Tab*) 18 mg PO DAILY [facility] Last Admin: 07/16/19 09:13 Dose: 18 mg Miscellaneous (Ativan Pyxis Cortes) 1 ea N/A .ATIVAN IV CORTES PRN PRN Reason: PYXIS CORTES Mometasone Furoate/Formoterol Fumar (Dulera 100/5 Mdi*) 1 puff INH BID [facility] Last Admin: 07/16/19 09:14 Dose: 1 puff Multivitamins/Minerals (Theragran/Minerals Tab*) 1 tab PO DAILY [facility] Last Admin: 07/16/19 09:13 Dose: 1 tab Oxycodone HCl (Oxycontin(*)) 20 mg PO Q12HR [facility] Last Admin: 07/16/19 09:16 Dose: 20 mg Pantoprazole Sodium (Protonix Tab*) 40 mg PO DAILY [facility] Last Admin: 07/16/19 09:13 Dose: 40 mg Zolpidem Tartrate (Ambien Tab*) 10 mg PO BEDTIME [facility] Last Admin: 07/15/19 22:30 Dose: 10 mg Vital Signs - 8 hr 07/16/19 07/16/19 07/16/19 09:12 09:16 11:04 Respiratory 17 19 16 Rate Oxygen Devices in Use Now: Nasal Cannula - 4L Appearance: appears comfortable resting in bed , no acute distress Eyes: No Scleral Icterus Ears/Nose/Mouth/Throat: Clear Oropharnyx, Mucous Membranes Moist Neck: NL Appearance and Movements; NL JVP, Trachea Midline Respiratory: Symmetrical Chest Expansion and Respiratory Effort, - - exp wheezes bilat, diminshed breath sounds Cardiovascular: NL Sounds; No Murmurs; No JVD, No Edema Abdominal: NL Sounds; No Tenderness; No Distention Extremities: No Edema, No Clubbing, Cyanosis Skin: No Rash or Ulcers Neurological: Alert and Oriented x 3 Nutrition: Taking PO's Result Diagrams: 07/15/19 12:03 07/15/19 12:03 Assess/Plan/Problems-Billing Assessment: Mr. Purdy is a 53 yo M with PMH of COPD on 4L, MS, and stage III lung cancer in remission; who presented to the ED with suicidal ideations requiring MHU admission. Hospital Medicine has been asked to consult, initially regarding code status and now d/t SOB. - Patient Problems (1) Pneumonia Current Visit: Yes Status: Acute Code(s): J18.9 - PNEUMONIA, UNSPECIFIED ORGANISM SNOMED Code(s): 066103417 Comment: - C/o mild SOB and general malaise beginning this morning - Repeat CXR today shows developing RUL consolidation, new from admission - Recently hospitalized at [place] for pneumonia requiring intubation, still finishing course of Levaquin - CURB-65 score is 0 and patient is only very mildly tachycardic, so inpatient admission is not necessary - D/c Levaquin - continue cefdinir ( will need 4 more days at discharge 07/17/2019), nebs and inhalers - will change azithromycin to doxycycline - he will need 4 more days at discharge (07/17/2019) (2) Suicidal ideations Current Visit: Yes Status: Acute Code(s): R45.851 - SUICIDAL IDEATIONS SNOMED Code(s): 2576607 Comment: - Management per Psych (3) COPD (chronic obstructive pulmonary disease) Current Visit: Yes Status: Acute Code(s): J44.9 - CHRONIC OBSTRUCTIVE PULMONARY DISEASE, UNSPECIFIED SNOMED Code(s): 71908989 Comment: - No evidence of exacerbation - At baseline oxygen requirment of 4L - Goal O2 sat 88-92% - Continue Marc Davis (4) Chronic pain Current Visit: Yes Status: Acute Code(s): G89.29 - OTHER CHRONIC PAIN SNOMED Code(s): 71881955 Comment: - Follows with pain clinic - Continue Oxycontin, hydromorphone (5) Lung cancer Current Visit: Yes Status: Acute Code(s): C34.90 - MALIGNANT NEOPLASM OF UNSP PART OF UNSP BRONCHUS OR LUNG SNOMED Code(s): 140981471 Comment: - Outpatient notes indicate in remission s/p chemo and radiation (6) Multiple sclerosis Current Visit: Yes Status: Acute Code(s): G35 - MULTIPLE SCLEROSIS SNOMED Code(s): 95495610 Comment: - Has not seen a neurologist in quite some time and would greatly benefit from outpatient follow up - Continue baclofen (7) DNR (do not resuscitate) Current Visit: Yes Status: Acute Comment: Status and Disposition: Dispo per Psych. Social work has already made a referral for outpatient palliative care. Thank you for this consultation. We will follow along in his care.
[2019-07-16] MEDS: Acetaminophen TAB* 325 MG PO PRN ×2 (12:05→19:50)
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
[2019-07-16] MEDS: Zolpidem TAB* 10 MG PO SCH (21:36)
[2019-07-16] MEDS: guaiFENesin ER TAB 600 MG PO SCH (21:37)
[2019-07-17] MEDS: Citalopram TAB* 40 MG PO SCH (09:15)
[2019-07-17] MEDS: Azithromycin TAB* 250 MG PO SCH (09:15)
[2019-07-17] MEDS: guaiFENesin ER TAB 600 MG PO SCH ×2 (09:15→20:38)
[2019-07-17] MEDS: Pantoprazole TAB * 40 MG TAB PO SCH (09:15)
[2019-07-17] MEDS: oxyCODONE SR TAB(*) 10 MG TAB.SR PO SCH ×2 (09:15→20:38)
[2019-07-17] MEDS: Cefdinir cap* 300 MG CAP PO SCH ×2 (09:16→20:39)
[2019-07-17] MEDS: Baclofen TAB* 20 MG PO SCH ×4 (09:16→20:39)
[2019-07-17] MEDS: Multivitamins/Minerals TAB PO SCH (09:16)
[2019-07-17] MEDS: Folic Acid TAB* 1 MG PO SCH (09:16)
[2019-07-17] MEDS: Methylphenidate ER TAB* 18 MG PO SCH (09:16)
[2019-07-17] MEDS: Mometasone/Formoter 100/5 MDI INH SCH ×2 (09:17→20:39)
--- NOTE | 2019-07-17 10:56 | PN ---
Subjective - Subjective Date of Service: 07/17/19 Service Type: 82012 Hosp care 35 min high complexity Subjective: Nursing Report: no behavioral incidents, mostly in his room CC: " My lung hurts" Patient was seen and evaluated in his room. He reported that his lung hurt. The patient reported having more energy after taking concerta and feels less sluggish and less indifferent. Patient reported that he is tolerating medications without side effects. The patient is requesting discharge home tomorrow. Objective - General Observations Appearance: Disheveled Appears Stated Age: Yes Stature: WNL Posture: Slumped Eye Contact: Average Behavior/Activity: WNL - Interaction Observations Attitude Towards Examiner: Cooperative Stated Mood: Irritable Affect: Restricted Speech Pattern/Tone: Clear Thought Process: Coherent Perception: WNL Thought Content: Self-Deprecatory Hallucination Type: None Delusion Type: None - Cognitive Function Orientation: A&O x 4 Level of Consciousness: Awake - Medication Compliance Cooperative with Inpatient Medication Regimen: Yes - Group Participation Participates in Group Activities: No Assessment - Assessment Merits Inpatient Hospitalization: For Immediate Safety Inpatient DSM-V Dx: F32.2 Clinical Impression: Mr Ku has been admitted to this locked psychiatric unit for safety, assessment and treatment after threatening to kill himself by shooting himself. He demonstrates poor insight into circumstances raising concern with his significant other leading to efforts to ensure his safety. He has multiple medical issues, now with recurrent pneumonia. He continues to merit this level of care. Plan - Plan Treatment Plan: Name: KT KU Birthdate: 1965 [id number] # The patient requires psychiatric inpatient admission at this time to assure safety, receive treatment and work toward stabilization. # Obtained collateral information from his brother Ezra # DNR status # Collaboration with Social Work #Constant Observation #Order for Oxygen compressor and Wheelchair and reclining chair # Firearms removed by Cow Washer # Hospital consult placed with plan to assist with [facility] form and oncology/ and palliative care resources # Safe ACT completed #Continue methylphenidate 18mg daily for cancer related depression and associated lethargy # Palliative care referral completed # Hospitalist team evaluated patient and determined that he does not require inpatient medical services # Ethics consult completed with Ezra Munir # MERCHANDISE COMPLAINT ADJUSTER verified RX and doesnt require additional supply of xanax or pain medications upon discharge # Patient has capacity to decide code status and at this time his wishes include to be DNR code status. #Goals before discharge include: To eliminate/ reduce suicidal ideation Tentative Discharge: Wednesday ABG pH 7.41 (7.35-7.45) 07/13/19 01:10 ABG HCO3 27.4 mmol/L (19-31) 07/13/19 01:10 Sodium 139 mmol/L (135-145) 07/12/19 23:35 Potassium 3.9 mmol/L (3.5-5.0) 07/12/19 23:35 BUN 12 mg/dL (6-24) 07/12/19 23:35 Creatinine 0.86 mg/dL (0.67-1.17) 07/12/19 23:35 Hemoglobin A1c 5.4 % (4.0-5.6) 07/14/19 07:42 Calcium 8.5 mg/dL (8.6-10.3) L 07/12/19 23:35 AST 30 U/L (13-39) 07/12/19 23:35 ALT 38 U/L (7-52) 07/12/19 23:35 Triglycerides 122 mg/dL 07/14/19 07:42 Cholesterol 124 mg/dL 07/14/19 07:42 LDL Cholesterol 75 mg/dL 07/14/19 07:42 Update 1.06.23 - Continue current plan. Hospitalist following re pneumonia. Continued Medication Management: Continue Outpt Medication Medications: Current Medications Acetaminophen (Tylenol Tab*) 650 mg PO Q4H PRN PRN Reason: for pain; or Temp >101 F Last Admin: 07/16/19 19:50 Dose: 650 mg Al Hydrox/Mg Hydrox/Simethicone (Maalox Plus*) 30 ml PO Q4H PRN PRN Reason: INDIGESTION Albuterol (Ventolin Hfa Inhaler*) 1 puff INH Q6HR PRN PRN Reason: SHORTNESS OF BREATH Last Admin: 07/14/19 09:25 Dose: 1 puff Albuterol/Ipratropium (Duoneb (Albuterol 2.5 Mg/Ipratropium 0.5 Mg)) 1 neb INH Q4H PRN PRN Reason: SHORTNESS OF BREATH Last Admin: 07/15/19 10:41 Dose: 1 neb Alprazolam (Xanax Tab*) 2 mg PO TID PRN PRN Reason: ANXIETY Last Admin: 07/16/19 19:50 Dose: 2 mg Azithromycin (Zithromax Tab*) 250 mg PO DAILY [facility] Stop: 07/19/19 09:01 Last Admin: 07/17/19 09:15 Dose: 250 mg Baclofen (Lioresal Tab*) 20 mg PO QID [facility] Last Admin: 07/17/19 09:16 Dose: 20 mg Cefdinir (Cefdinir Cap*) 300 mg PO BID [facility] Stop: 07/22/19 12:59 Last Admin: 07/17/19 09:16 Dose: 300 mg Citalopram Hydrobromide (Celexa Tab*) 40 mg PO DAILY [facility] Last Admin: 07/17/19 09:15 Dose: 40 mg Diphenhydramine HCl (Benadryl Po*) 25 mg PO BEDTIME PRN PRN Reason: SLEEP Epinephrine HCl (Adrenalin 1 Mg/Ml) 0.3 mg IM DAILY PRN PRN Reason: ALLERGY SYMPTOMS Folic Acid (Folvite Tab*) 1 mg PO DAILY [facility] Last Admin: 07/17/19 09:16 Dose: 1 mg Guaifenesin (Mucinex*) 600 mg PO BID [facility] Last Admin: 07/17/19 09:15 Dose: 600 mg Hydromorphone HCl (Dilaudid Tab*) 4 mg PO QID PRN PRN Reason: PAIN Last Admin: 07/16/19 19:50 Dose: 4 mg Methylphenidate HCl (Concerta Er Tab*) 18 mg PO DAILY [facility] Last Admin: 07/17/19 09:16 Dose: 18 mg Miscellaneous (Ativan Pyxis Mccullough) 1 ea N/A .ATIVAN IV MCCULLOUGH PRN PRN Reason: PYXIS MCCULLOUGH Mometasone Furoate/Formoterol Fumar (Dulera 100/5 Mdi*) 1 puff INH BID [facility] Last Admin: 07/17/19 09:17 Dose: 1 puff Multivitamins/Minerals (Theragran/Minerals Tab*) 1 tab PO DAILY [facility] Last Admin: 07/17/19 09:16 Dose: 1 tab Oxycodone HCl (Oxycontin(*)) 20 mg PO Q12HR [facility] Last Admin: 07/17/19 09:15 Dose: 20 mg Pantoprazole Sodium (Protonix Tab*) 40 mg PO DAILY [facility] Last Admin: 07/17/19 09:15 Dose: 40 mg Zolpidem Tartrate (Ambien Tab*) 10 mg PO BEDTIME [facility] Last Admin: 07/16/19 21:36 Dose: 10 mg - Discharge Plan Discharge Plan: Inpatient Hospitalization
[2019-07-17] MEDS: HYDROmorphone TAB* 4 MG PO PRN ×2 (11:34→14:47)
[2019-07-17] MEDS: ALPRAZolam TAB* 0.5 MG PO PRN ×2 (11:34→13:41)
[2019-07-17] MEDS: Acetaminophen TAB* 325 MG PO PRN (13:41)
--- NOTE | 2019-07-17 16:10 | CONSULT ---
Palliative / Hospice Consult Ordering Provider: Chani Livingston - PCP-[place] [facility] Reason: Goals of care, pt requesting hospice/no bowel meds/oxycodone and hyromorphone - Subjective Code Status: DNR Advance Directives Location: In Chart [facility] Part A Completed: Yes - on chart [facility] Part E Completed:: Yes - on chart - History or Present Illness History or Present Illness: 53yo male was presented to ER with suicide ideation. PMH is significant for lung cancer stage 3 in remission s/p chemo & radiation, COPD on 4 liters O2 and multiple sclerosis. 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 Studies CXR#1 density RUL improved aeration from previous study, CXR #2 RUL increased consolidation ? pneumonia, H/H 12.1/36, BUN /Cr 7/.76, egfr 106.5, Ca 8.5 and alb 3.2. Pt admitted because danger to himself , hospitalist consulted for medical management. All history form pt and medical record. Lab Values: Laboratory Last Values WBC 6.4 10^3/uL (3.5-10.8) 07/15/19 12:03 RBC 4.01 10^6 /uL (4.18-5.48) L 07/15/19 12:03 Hgb 12.1 g/dL (14.0-18.0) L 07/15/19 12:03 Hct 36 % (42-52) L 07/15/19 12:03 MCV 89 fL (80-94) 07/15/19 12:03 MCH 30 pg (27-31) 07/15/19 12:03 MCHC 34 g/dL (31-36) 07/15/19 12:03 RDW 14 % (10-15) 07/15/19 12:03 Plt Count 315 10^3/uL (150-450) 07/15/19 12:03 MPV 8.4 fL (7.4-10.4) 07/15/19 12:03 Neut % (Auto) 79.9 % 07/15/19 12:03 Lymph % (Auto) 9.7 % 07/15/19 12:03 Blaine % (Auto) 7.5 % 07/15/19 12:03 Eos % (Auto) 2.4 % 07/15/19 12:03 Baso % (Auto) 0.5 % 07/15/19 12:03 Absolute Neuts (auto) 5.1 10^3/ul (1.5-7.7) 07/15/19 12:03 Absolute Lymphs (auto) 0.6 10^3/ul (1.0-4.8) L 07/15/19 12:03 Absolute Monos (auto) 0.5 10^3/ul (0-0.8) 07/15/19 12:03 Absolute Eos (auto) 0.2 10^3/ul (0-0.6) 07/15/19 12:03 Absolute Basos (auto) 0.0 10^3/ul (0-0.2) 07/15/19 12:03 Absolute Nucleated RBC 0.0 10^3/ul 07/15/19 12:03 Nucleated RBC % 0.0 07/15/19 12:03 Patient Temperature Not Reportable 07/13/19 01:10 ABG pH 7.41 (7.35-7.45) 07/13/19 01:10 ABG pH (Temp Correct) Not Reportable 07/13/19 01:10 ABG pCO2 45 mmHg (35-45) 07/13/19 01:10 ABG pCO2 (Temp Corrct Not Reportable 07/13/19 01:10 ABG pO2 78 mmHg (80-100) L 07/13/19 01:10 ABG pO2 (Temp Correct Not Reportable 07/13/19 01:10 ABG HCO3 27.4 mmol/L (19-31) 07/13/19 01:10 ABG O2 Saturation 97.1 % (94.0-98.0) 07/13/19 01:10 ABG Base Excess 3.2 mmol/L (-2.0-2.0) H 07/13/19 01:10 Respiration Rate Not Reportable 07/13/19 01:10 O2 Delivery Device nasal cannula 07/13/19 01:10 Ventilator Type Not Reportable 07/13/19 01:10 Vent Mode Not Reportable 07/13/19 01:10 FiO2 36 07/13/19 01:10 Inspiratory Time Not Reportable 07/13/19 01:10 PEEP Not Reportable 07/13/19 01:10 Pressure Support Not Reportable 07/13/19 01:10 Pressure Control Not Reportable 07/13/19 01:10 EPAP Not Reportable 07/13/19 01:10 IPAP Not Reportable 07/13/19 01:10 BiPAP Not Reportable 07/13/19 01:10 Sodium 138 mmol/L (135-145) 07/15/19 12:03 Potassium 3.5 mmol/L (3.5-5.0) 07/15/19 12:03 Chloride 103 mmol/L (101-111) 07/15/19 12:03 Carbon Dioxide 26 mmol/L (22-32) 07/15/19 12:03 Anion Gap 9 mmol/L (2-11) 07/15/19 12:03 BUN 7 mg/dL (6-24) 07/15/19 12:03 Creatinine 0.76 mg/dL (0.67-1.17) 07/15/19 12:03 Est GFR ( Amer) 128.8 (>60) 07/15/19 12:03 Est GFR (Non-Af Amer) 106.5 (>60) 07/15/19 12:03 BUN/Creatinine Ratio 9.2 (8-20) 07/15/19 12:03 Glucose 103 mg/dL (70-100) H 07/15/19 12:03 Hemoglobin A1c 5.4 % (4.0-5.6) 07/14/19 07:42 Calcium 8.5 mg/dL (8.6-10.3) L 07/15/19 12:03 Total Bilirubin 0.70 mg/dL (0.2-1.0) 07/12/19 23:35 AST 30 U/L (13-39) 07/12/19 23:35 ALT 38 U/L (7-52) 07/12/19 23:35 Alkaline Phosphatase 52 U/L (34-104) 07/12/19 23:35 Total Protein 6.4 g/dL (6.4-8.9) 07/12/19 23:35 Albumin 3.2 g/dL (3.2-5.2) 07/12/19 23:35 Globulin 3.2 g/dL (2-4) 07/12/19 23:35 Albumin/Globulin Ratio 1.0 (1-3) 07/12/19 23:35 Triglycerides 122 mg/dL 07/14/19 07:42 Cholesterol 124 mg/dL 07/14/19 07:42 LDL Cholesterol 75 mg/dL 07/14/19 07:42 HDL Cholesterol 25.0 mg/dL 07/14/19 07:42 TSH 2.02 mcIU/mL (0.34-5.60) 07/12/19 23:35 Urine Color Yellow 07/13/19 12:00 Urine Appearance Clear 07/13/19 12:00 Urine pH 6.0 (5-9) 07/13/19 12:00 Ur Specific Cornelius 1.017 (1.010-1.030) 07/13/19 12:00 Urine Protein Negative (Negative) 07/13/19 12:00 Urine Ketones Trace (Negative) A 07/13/19 12:00 Urine Blood Negative (Negative) 07/13/19 12:00 Urine Nitrate Negative (Negative) 07/13/19 12:00 Urine Bilirubin Negative (Negative) 07/13/19 12:00 Urine Urobilinogen Negative (Negative) 07/13/19 12:00 Ur Leukocyte Esterase Negative (Negative) 07/13/19 12:00 Urine Glucose Negative (Negative) 07/13/19 12:00 Salicylates < 2.50 mg/dL (<30) 07/12/19 23:35 Urine Opiates Screen Presumptive positive (None Detect) A 07/13/19 12:00 Acetaminophen < 15 mcg/mL 07/12/19 23:35 Ur Barbiturates Screen None detected (None Detect) 07/13/19 12:00 Ur Phencyclidine Scrn None detected (None Detect) 07/13/19 12:00 Ur Amphetamines Screen None detected (None Detect) 07/13/19 12:00 U Benzodiazepines Scrn Presumptive positive (None Detect) A 07/13/19 12:00 Urine Cocaine Screen None detected (None Detect) 07/13/19 12:00 U Cannabinoids Screen None detected (None Detect) 07/13/19 12:00 Serum Alcohol < 10 mg/dL (<10) 07/12/19 23:35 - Objective Active Medications: Acetaminophen (Tylenol Tab*) 650 mg PO Q4H PRN PRN Reason: for pain; or Temp >101 F Last Admin: 07/17/19 13:41 Dose: 650 mg Al Hydrox/Mg Hydrox/Simethicone (Maalox Plus*) 30 ml PO Q4H PRN PRN Reason: INDIGESTION Albuterol (Ventolin Hfa Inhaler*) 1 puff INH Q6HR PRN PRN Reason: SHORTNESS OF BREATH Last Admin: 07/14/19 09:25 Dose: 1 puff Albuterol/Ipratropium (Duoneb (Albuterol 2.5 Mg/Ipratropium 0.5 Mg)) 1 neb INH Q4H PRN PRN Reason: SHORTNESS OF BREATH Last Admin: 07/15/19 10:41 Dose: 1 neb Alprazolam (Xanax Tab*) 2 mg PO TID PRN PRN Reason: ANXIETY Last Admin: 07/17/19 13:41 Dose: 2 mg Baclofen (Lioresal Tab*) 20 mg PO QID [facility] Last Admin: 07/17/19 13:13 Dose: 20 mg Cefdinir (Cefdinir Cap*) 300 mg PO BID [facility] Stop: 07/22/19 12:59 Last Admin: 07/17/19 09:16 Dose: 300 mg Citalopram Hydrobromide (Celexa Tab*) 40 mg PO DAILY [facility] Last Admin: 07/17/19 09:15 Dose: 40 mg Diphenhydramine HCl (Benadryl Po*) 25 mg PO BEDTIME PRN PRN Reason: SLEEP Doxycycline Hyclate (Vibramycin Cap(*)) 100 mg PO BID [facility] Epinephrine HCl (Adrenalin 1 Mg/Ml) 0.3 mg IM DAILY PRN PRN Reason: ALLERGY SYMPTOMS Folic Acid (Folvite Tab*) 1 mg PO DAILY [facility] Last Admin: 07/17/19 09:16 Dose: 1 mg Guaifenesin (Mucinex*) 600 mg PO BID [facility] Last Admin: 07/17/19 09:15 Dose: 600 mg Hydromorphone HCl (Dilaudid Tab*) 4 mg PO QID PRN PRN Reason: PAIN Last Admin: 07/17/19 14:47 Dose: 4 mg Methylphenidate HCl (Concerta Er Tab*) 18 mg PO DAILY [facility] Last Admin: 07/17/19 09:16 Dose: 18 mg Miscellaneous (Ativan Pyxis Cortes) 1 ea N/A .ATIVAN IV CORTES PRN PRN Reason: PYXIS CORTES Mometasone Furoate/Formoterol Fumar (Dulera 100/5 Mdi*) 1 puff INH BID [facility] Last Admin: 07/17/19 09:17 Dose: 1 puff Multivitamins/Minerals (Theragran/Minerals Tab*) 1 tab PO DAILY [facility] Last Admin: 07/17/19 09:16 Dose: 1 tab Oxycodone HCl (Oxycontin(*)) 20 mg PO Q12HR [facility] Last Admin: 07/17/19 09:15 Dose: 20 mg Pantoprazole Sodium (Protonix Tab*) 40 mg PO DAILY [facility] Last Admin: 07/17/19 09:15 Dose: 40 mg Zolpidem Tartrate (Ambien Tab*) 10 mg PO BEDTIME [facility] Last Admin: 07/16/19 21:36 Dose: 10 mg Vital Signs: Vital Signs: Temp Pulse Resp BP Pulse Ox 97.9 F 78 16 99/60 96 07/17/19 09:07 07/17/19 09:07 07/17/19 14:47 07/17/19 09:07 07/17/19 09:07 Patient Weight: Weight 113.398 kg Intake and Output: ADLs: Meal Record Start: 07/13/19 14: 50 Freq: Status: Active Protocol: Created 07/13/19 14:50 System (Rec: 07/13/19 14:50 System [id number]) Intake and Output Start: 07/12/19 22: 53 Freq: Status: Active Protocol: Created 07/12/19 22:53 System (Rec: 07/12/19 22:53 System [id number]) Eyes: No Scleral Icterus Ears/Nose/Mouth/Throat: Clear Oropharnyx, Mucous Membranes Moist Neck: NL Appearance and Movements; NL JVP, Trachea Midline Cardiovascular: NL Sounds; No Murmurs; No JVD, No Edema Respiratory: - - diffuse wheeze Abdominal: NL Sounds; No Tenderness; No Distention Extremities: No Edema, No Clubbing, Cyanosis Neurological: Alert and Oriented x 3 - Assessment Assessment: 53yo male with depression, COPD, multiple sclerosis and lung ca in remission - Plan Consult Plan (MU): Palliative Plan: Long discussion with pt about goals of care and fears/worries. 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 Clarified he has a completed MOLST on his chart DNR /DNI and we completed a HCP together which is on the chart and I gave him a copy. SW has sent a referral to [facility] for hospice although I am not sure he will qualify. His lung cancer is stage 3 and in remission and his multiple sclerosis is stable but bothersome. His biggest issue is his COPD he is on 4 liters, he has CPAP at night for obstructive sleep apnea which he doesn't use because the mask is uncomfortable. He also doesn't like his symbicort feels it isn't effective to consider alternate drug. At this time his COPD is his biggest issue and needs to be at maximal therapy. Pt should follow up with Dr. Downs after discharge. Pt gets hospitalized at [facility] often for his COPD. Pt could benefit from bowel meds and something for anxiety. We discussed the progression of chronic disease and how hard it is to cope with chronic disease. KPS 60%, PPS 60% - Time On Unit Date of Evaluation: 07/17/19 Hospice Consult Time in: 14:50 Hospice Consult Time Out: 15:50 Hospice Consult Time Total: 60 > 50% of Time Spend In Counseling or Coordinating Care: Yes
--- NOTE | 2019-07-17 19:31 | PN ---
Hospitalist Progress Note Date of Service: 07/17/19 Patient is ok to discharge home from medical stand point. Patient is at his baseline o2 requirement, respiration are 16, no acute respiratory distress, afebrile. He will need to continue on doxycycline 100 mg po BID for 4 more days and cefdinir 300 mg po bid for 4 more days. Hospital medicine will sign off please don' t hesitate to contact us for further recommendations as needed
[2019-07-17] MEDS: Zolpidem TAB* 10 MG PO SCH (20:39)
[2019-07-18] MEDS: ALPRAZolam TAB* 0.5 MG PO PRN (05:55)
[2019-07-18] MEDS: HYDROmorphone TAB* 4 MG PO PRN (05:55)
--- NOTE | 2019-07-18 08:37 | DS ---
Subjective - Subjective Service Types: [address] [facility] Day Mgmt complex over 30 min Discharge Date: 07/18/19 Subjective: CC: " I am better" Patient looks forward to seeing his brother today and hearing from care services. The patient was seen and evaluated before discharge today. The patient reported that being in the hospital helped and he was able to fill out the MOLST form and be referred to palliative care services. Per nursing no behavioral issues or overnight events reported. Patient reported tolerating medications without side effects. Justification for admission: Immediate Safety. CC " I just want to be comfortable" The patient was brought to [facility] by his brother after he placed guns on his bed in order to use them to end his life. He was treated at [facility] for pneumonia and received supportive measures against his wishes because he did not have MOLST form completed. He reported having stage 4 lung cancer and fears being in pain and feeling that he is being suffocated. He reported being angry about not getting comfort care after he thought the necessary paperwork was already completed. He explained that he has been thinking about his code status for some time (since 2016) and after receiving radiation and chemotherapy wishes to only receive comfort care. He wished to appoint his brother Ezra to be his health care proxy. He explained the nature of his illness and expressed the degree of suffering he has endured. The guns were removed from the home and this was confirmed by his brother. He reported poor sleep and normal appetite. The patient reported being in pain and has difficulty breathing most of the day and is upset at his girlfriend because he thought she filled out the paperwork so that he would not receive life sustaining treatment. The patient denied homicidal ideation intent or plan. The patient denied auditory and/ or visual hallucinations. MDD Reported feeling depressed while having diminished interests which were found to be enjoyable in the past. Reported feelings of hopelessness , and worthlessness. Reported loss of energy or lack of motivation to complete tasks. Reported thoughts that he would be better off . Anxiety Denied having symptoms of anxiety such as having times where heart feels that it is beating out of chest , sweaty palms, or shallow breathing. Denied having uncomfortable or intrusive thoughts. Denied feeling restless, high strung, or worrying too much most of the time. Bipolar Denied symptoms of jose raul such as having many ideas at once. Denied increased talkativeness where no one can interrupt. Denied feeling irritable most of the time while having an persistent abundance of energy most of the day without the use of energy drinks, stimulants, or recreational drug use. Denied an increase in intensity in goal directed activities. Denied having the decreased need to sleep for days , having prolonged elevated mood , or feeling on top of the world. Denied impulsive risky sexual encounters. Denied spending money recklessly , going on spending sprees wiping out savings. Denied impulsively traveling out of town or country, having super garcias, and unrealistic wealth or fame. Psychosis Does not endorse hearing things that other people do not hear or seeing things other people do not see. Denied feeling that TV is making references. Denied feeling that people are spying , following , or reading their thoughts. Phobias: Patient denied having excessive fear of a particular thing or situation. Eating disorders: Patient denied having excessive eating habits or feelings of guilt after eating. Denied repeated episodes of self induced vomiting after eating. PTSD Denied flashbacks, nightmares and avoidance of a prior traumatic event. PAST PSYCHIATRIC HISTORY: Prior Diagnosis : Major Depressive Disorder History of past Psychiatric Hospitalizations: 1 prior psychiatric admission at [facility]. History of past suicide/homicide attempts : Refused to elaborate but mentioned 1 suicide attempt unknown method in 2016. Denied self injurious behaviors. Outpatient follow-up: Dr. Marie PCP Medications: Past trials of medications include celexa, remeron alprazolam, zolpidem Guardianship: None. Health care proxy Ezra his brother FAMILY HISTORY: - Suicide: Denied family history of suicide. - Mental illness: Denied a history of mental health in immediate family members. - Substance abuse: Father abused alcohol SUBSTANCE ABUSE HISTORY: - EtOH: Denied No associated legal issues, blackouts, seizures, DTs or past hospitalizations due to alcohol. - Tobacco: smoked since age 10 until 2016 and quit 3 years ago declined replacement therapy - Cannabis: Denied - Heroin: Denied - Cocaine: Denied - Substance abuse treatment: Denied past substance abuse treatment SOCIAL HISTORY: Born in [facility] and raised by both parents. - Living situation: Currently lives in [facility] with brother and girlfriend - Employment history: worked as EMT for 30 years - Relationship: 4 children and currently not but in a relationship with his girlfriend whom he lives with - Legal history: Denied - service history: Denied PAST MEDICAL HISTORY: Stage 4 Lung cancer, [place]. - Allergies: Hydromorphone Physical Exam: Please see ED note Mental Status Exam on Admission APPEARANCE : 53 year old male using wheelchair to ambulate. Patient is disheveled and appears to have poor hygiene and grooming BEHAVIOR: Irritable EYE CONTACT: Fair PSYCHOMOTOR ACTIVITY: No psychomotor agitation or retardation. MOVEMENTS: Bilateral upper extremity tremor SPEECH : coherent normal volume MOOD : "Angry" AFFECT : Type is irritable and angry. Range is restricted Mood Incongruent THOUGHT PROCESS: Formulated and organized in a logical, linear goal directed manner. No flight of ideas, neologism (made up words) , perseveration , tangential , loose associations , or circumstantiality. THOUGHT CONTENT: no delusions, obsessions, phobias or preoccupations. PERCEPTION: No current auditory or visual hallucinations. Doesnt appear to be responding to internal cues. No evidence of depersonalization , de-realization, or illusions SUICIDALITY suicidal ideation with plan to end life with gun HOMICIDALITY Denied homicidal ideation, intent or plan. Insight/judgment: Poor insight and judgment ORIENTATION: Oriented to self, location, and time. Diagnosis on Admission: Major depressive disorder. severe. Diagnosis on Discharge: Major depressive disorder in partial remission. Condition at the time of discharge: At the time of discharge patient showed improvement of sleep and appetite. The patient was not a danger to self or others. The patient denied suicidal ideation, intent or plan. The patient denied homicidal targets, ideation, intent or plan. The patient gained insight into mental illness, triggers, and treatment. The patient took medication as prescribed. The patient denied side effects of medication and objective signs of side effects were not evident. Therapy Resources were offered to the patient. Patient was given a supply of prescriptions at the time of discharge. The patient plans to attend follow up care with the follow up arrangements that were discussed and put in place. Patient was asked to keep appointments as scheduled, take medication as prescribed, have routine follow up care with their primary care physician and refrain from any use of alcohol or drugs. Objective - General Observations Appearance: Disheveled Appears Stated Age: Yes Stature: WNL Posture: Slumped Eye Contact: Average Behavior/Activity: WNL - Interaction Observations Attitude Towards Examiner: Cooperative Stated Mood: Dysphoric Affect: Restricted Speech Pattern/Tone: Clear Thought Process: Coherent Perception: WNL Thought Content: WNL Hallucination Type: None Delusion Type: None - Cognitive Function Orientation: A&O x 4 Level of Consciousness: Awake - Medication Compliance Cooperative with Inpatient Medication Regimen: Yes - Group Participation Participates in Group Activities: No Treatment Course & Assessment Clinical Course & Impression: Hospital course part A: Mr Purdy has been admitted to this locked psychiatric unit for safety, assessment and treatment after threatening to kill himself by shooting himself. He demonstrates poor insight into circumstances raising concern with his significant other leading to efforts to ensure his safety. He has multiple medical issues, now with recurrent pneumonia. Hospital course part B: Labs ordered included CBC, CMP, UDS, TSH, HBA1c, TSH, Toxicology screen, Urine analysis, and lipid profile. Labs were reviewed and vital signs were monitored during the course of admission. The patient was admitted to the adult behavioral unit and placed on constant observation due to his medical status and need for oxygen supplementation. There were no occurrence of behavioral incidents. Tolerated medication changes without side effects. Group therapy and services were offered. The risks, benefits, and alternative treatment options were discussed as well as of the risks of refusing treatment. Treatment associated risks discussed. After this discussion the patient made an acknowledgement of this understanding. Follow up care appointments were put in place. The patient was informed not to abruptly stop or start new medications before consulting with a medical professional. Improvements in patient from the time of admission include: Improved affect, sleep and decrease in anxiety. The patient expressed readiness for discharge home. The patient presents with a broader range of affect. The patient denied suicidal and or homicidal ideation intent or plan. Overall, the patient responded well to inpatient treatment as evidenced by their report of strengthening of coping mechanisms, reduced distress. His brother who is also his healthcare proxy are in agreement with DNR status and both wish to pursue hospice care upon discharge. Hospital consult placed and MOLST form was completed and referral to palliative care resources was made. Safe ACT completed. Patient was determined to have capacity to decide code status and wished to be DNR code status. He listed multiple reasons why he choose to be DNR. Safety precautions were put in place which included involving the patient and their family to closely monitor for changes in mental state. In addition, implementing follow up care, screening for the need to remove/securing firearms , weapons and stockpile of medications. Patient/ family instructed to immediately call 911 should any safety concerns arise. BANQUET ATTENDANT was checked and is receiving controlled substances oxycodone 20mg BID 30 day supply dispensed 06/23/19 and xanax 1mg TID 30 day supply dispensed Patient advised of the lethality and dangerousness of combining medications with pain medications and/ or with alcohol and to only take medication the way his provider recommends and he acknowledged this understanding. The patient was advised of the 24 hour / 7 days a week availability of the emergency room and to call 911 in the event of an emergency such as being suicidal and/ or homicidal. The patient was informed of the contact information for [facility], Suicide Prevention and Crisis Services, National Suicide Prevention Lifeline, [facility], Alcoholics Anonymous, and [facility]. Medications started included methylphenidate 18mg daily for cancer related depression and lethargy and home medications were resumed. Patients medical conditions include stage 3 lung cancer, multiple sclerosis, COPD, pneumonia. Hospital service was contacted before discharge and did not recommend further medical treatment in the inpatient setting. Patient was provided with a refill of celexa and and methylphenidate upon discharge as well as doxycycline and cefdinir. The rest of his medications he did not require additional supply at this time and plans to follow up with PCP. Family was contacted before discharge. His brother plans to look over him after he is discharged. The family confirmed that the patient is at their baseline. At this time the patient is eager for discharge and is in agreement with the discharge plan. Patients family was advised on how the days following discharge can be a vulnerable period and to look out for warning signs associated with decompensation and progression of mental illness. They were notified of the resources available in the event these situations arise and confirmed that the patient has no access to firearms or stockpiles of medications. His brother Ezra removed firearms from house and out of his access. Consults included to hospitalist and palliative care. Before admission patient was hostile and assaultive in the emergency department and this did not occur after his admission on the B[facility]. The patient showed poor hygiene and was unable to carry out activities of daily living on his own. Patient will be discharged to live at home with his brother. Referral for palliative care and visiting care services was completed . Follow up appointment at [facility] Patient informed of follow up appointment times. See more details for follow up care in the discharge plan. Risk factors were mitigated by establishing the patients baseline with close contacts . Implemented precautionary safety measures by confirming no stockpiles of medications and no access to firearms, provided mental health treatment,stabilization of depressive features, arrangement of outpatient continuation of care, as well as provided a supportive care environment and therapy resources during the course of hospitalization. Safety plan was reviewed with the patient and treatment team and the patient verbalized options they could pursue to ensure their safety in the event they feel unsafe and not doing well. Risk factors: Male, , Age, history of depression. Prior history of a suicide attempt. Multiple co morbid medical conditions. Protective factors: Currently no suicidal ideation, intent or plan. No suicide attempts in the last year, in a relationship, has children. Has family support system. No history of service. Currently no feelings of hopelessness, not in an occupation of social isolation, no family history of suicide, no longer has access to firearms. Doesnt have command hallucinations and or psychotic features at this time. No current substance abuse. No current alcohol abuse. Not an anniversary of a loss of a loved one. No changes in relationship status, housing, job, or school. Currently future orientated. Patient engaged in treatment and compliant with medication. No barriers to seek mental health treatment. ABG pH 7.41 (7.35-7.45) 07/13/19 01:10 ABG HCO3 27.4 mmol/L (19-31) 07/13/19 01:10 Sodium 138 mmol/L (135-145) 07/15/19 12:03 Potassium 3.5 mmol/L (3.5-5.0) 07/15/19 12:03 BUN 7 mg/dL (6-24) 07/15/19 12:03 Creatinine 0.76 mg/dL (0.67-1.17) 07/15/19 12:03 Hemoglobin A1c 5.4 % (4.0-5.6) 07/14/19 07:42 Calcium 8.5 mg/dL (8.6-10.3) L 07/15/19 12:03 AST 30 U/L (13-39) 07/12/19 23:35 ALT 38 U/L (7-52) 07/12/19 23:35 Triglycerides 122 mg/dL 07/14/19 07:42 Cholesterol 124 mg/dL 07/14/19 07:42 LDL Cholesterol 75 mg/dL 07/14/19 07:42 Merits Inpatient Hospitalization: No Clear for Discharge: Adequate Clinical Respons Inpatient DSM-V Dx: F32.2 Discharge Planning - Discharge Planning Discharge Plan: Outpatient Follow Up Outpatient Program: [facility] Recommendations for Continuing Care: Medication Management, Primary Care Followup Medications: Current Medications Acetaminophen (Tylenol Tab*) 650 mg PO Q4H PRN PRN Reason: for pain; or Temp >101 F Last Admin: 07/17/19 13:41 Dose: 650 mg Al Hydrox/Mg Hydrox/Simethicone (Maalox Plus*) 30 ml PO Q4H PRN PRN Reason: INDIGESTION Albuterol (Ventolin Hfa Inhaler*) 1 puff INH Q6HR PRN PRN Reason: SHORTNESS OF BREATH Last Admin: 07/14/19 09:25 Dose: 1 puff Albuterol/Ipratropium (Duoneb (Albuterol 2.5 Mg/Ipratropium 0.5 Mg)) 1 neb INH Q4H PRN PRN Reason: SHORTNESS OF BREATH Last Admin: 07/15/19 10:41 Dose: 1 neb Alprazolam (Xanax Tab*) 2 mg PO TID PRN PRN Reason: ANXIETY Last Admin: 07/18/19 05:55 Dose: 2 mg Baclofen (Lioresal Tab*) 20 mg PO QID [facility] Last Admin: 07/17/19 20:39 Dose: 20 mg Cefdinir (Cefdinir Cap*) 300 mg PO BID [facility] Stop: 07/22/19 12:59 Last Admin: 07/17/19 20:39 Dose: 300 mg Citalopram Hydrobromide (Celexa Tab*) 40 mg PO DAILY [facility] Last Admin: 07/17/19 09:15 Dose: 40 mg Diphenhydramine HCl (Benadryl Po*) 25 mg PO BEDTIME PRN PRN Reason: SLEEP Doxycycline Hyclate (Vibramycin Cap(*)) 100 mg PO BID [facility] Epinephrine HCl (Adrenalin 1 Mg/Ml) 0.3 mg IM DAILY PRN PRN Reason: ALLERGY SYMPTOMS Folic Acid (Folvite Tab*) 1 mg PO DAILY [facility] Last Admin: 07/17/19 09:16 Dose: 1 mg Guaifenesin (Mucinex*) 600 mg PO BID [facility] Last Admin: 07/17/19 20:38 Dose: 600 mg Hydromorphone HCl (Dilaudid Tab*) 4 mg PO QID PRN PRN Reason: PAIN Last Admin: 07/18/19 05:55 Dose: 4 mg Methylphenidate HCl (Concerta Er Tab*) 18 mg PO DAILY [facility] Last Admin: 07/17/19 09:16 Dose: 18 mg Miscellaneous (Ativan Pyxis Mccullough) 1 ea N/A .ATIVAN IV MCCULLOUGH PRN PRN Reason: PYXIS MCCULLOUGH Mometasone Furoate/Formoterol Fumar (Dulera 100/5 Mdi*) 1 puff INH BID [facility] Last Admin: 07/17/19 20:39 Dose: 1 puff Multivitamins/Minerals (Theragran/Minerals Tab*) 1 tab PO DAILY [facility] Last Admin: 07/17/19 09:16 Dose: 1 tab Oxycodone HCl (Oxycontin(*)) 20 mg PO Q12HR [facility] Last Admin: 07/17/19 20:38 Dose: 20 mg Pantoprazole Sodium (Protonix Tab*) 40 mg PO DAILY [facility] Last Admin: 07/17/19 09:15 Dose: 40 mg Zolpidem Tartrate (Ambien Tab*) 10 mg PO BEDTIME [facility] Last Admin: 07/17/19 20:39 Dose: 10 mg Discharge Planning: Prescriptions provided for discharge [x] Yes [] No Follow up care details as per social work arrangements. Patient response to discharge plan: [x] eager for discharge [] agreeable with discharge plan [] ambivalent about discharge [] disagrees with discharge today
[2019-07-18] MEDS ORDERED: DOXYcycline CAP(*) 100 MG PO SCH (09:00)
[2019-07-18] MEDS: Baclofen TAB* 20 MG PO SCH (09:13)
[2019-07-18] MEDS: Cefdinir cap* 300 MG CAP PO SCH (09:14)
[2019-07-18] MEDS: guaiFENesin ER TAB 600 MG PO SCH (09:14)
[2019-07-18] MEDS: Folic Acid TAB* 1 MG PO SCH (09:15)
[2019-07-18] MEDS: oxyCODONE SR TAB(*) 10 MG TAB.SR PO SCH (09:15)
[2019-07-18] MEDS: Methylphenidate ER TAB* 18 MG PO SCH (09:15)
[2019-07-18] MEDS: Citalopram TAB* 40 MG PO SCH (09:16)
[2019-07-18] MEDS: Multivitamins/Minerals TAB PO SCH (09:16)
[2019-07-18] MEDS: Pantoprazole TAB * 40 MG TAB PO SCH (09:16)
[2019-07-18] MEDS: Mometasone/Formoter 100/5 MDI INH SCH (09:17)
[2019-07-18 09:25] VITALS: BP 99/64
== END 2019-07-18 11:15 | disposition home health service (06) | DRG 885 ==
LOC: ED 22:34 → BSU 07-13 14:31
PROVIDERS: ADMIT Psychiatry & Neurology Psychiatry; ATTEND Psychiatry & Neurology Psychiatry
DX: F32.2 Major depressive disorder, single episode, severe without psychotic features (principal); J18.9 Pneumonia, unspecified organism; R45.851 Suicidal ideations; G35 Multiple sclerosis; Z66 Do not resuscitate; J44.9 Chronic obstructive pulmonary disease, unspecified; G47.33 Obstructive sleep apnea (adult) (pediatric); G89.29 Other chronic pain; M62.838 Other muscle spasm; Z99.81 Dependence on supplemental oxygen; Z85.118 Personal history of other malignant neoplasm of bronchus and lung; Z87.891 Personal history of nicotine dependence; Z88.8 Allergy status to other drugs, medicaments and biological substances; Z81.1 Family history of alcohol abuse and dependence; Z91.19 Patient's noncompliance with other medical treatment and regimen; Z92.21 Personal history of antineoplastic chemotherapy; Z92.3 Personal history of irradiation
CPT/HCPCS: 36415; 71045; 80048; 80053; 80061; 80307; 80320; 80329; 81003; 82803; 83036; 84443; 85025; 90732; 94640; 99222; 99231; 99233; 99238; 99284; A9270-GY; G0480; J1200; J2060